=== PATIENT | female | born 1950 | race Caucasian/White ===

== ENCOUNTER → 2019-10-02 13:22 | Outpatient (CLI) | payer MEDICARE, SELFPAY ==
--- NOTE | ~2019-10-02 | DEXA_ITS ---
Bone Density Report Name: Lisbet Davidson Age: 69 Sex: Female Ethnicity: White Date of : 1950 Indication: postmenopausal; screening for osteoporosis; height loss; prior fracture; hysterectomy; Referring Provider: Paul Santizo Study: Bone densitometry was performed. Exam Date: October 02, 2019 Accession number: [id number] Bone Density: Region BMD T-score Z-score Classification AP Spine (L1, L2, L3) 1.077 0.5 2.6 Normal Femoral Neck (Left) 0.709 -1.3 0.5 Osteopenia Total Hip (Left) 0.772 -1.4 0.1 Osteopenia Femoral Neck (Right) 0.706 -1.3 0.5 Osteopenia Total Hip (Right) 0.795 -1.2 0.3 Osteopenia Total Hip Mean 0.784 -1.3 0.2 Osteopenia World Health Organization criteria for BMD impression classify patients as: Normal (T-score at or above -1.0), Osteopenia (T-score between -1.0 and -2.5), or Osteoporosis (T-score at or below -2.5). 10-year Fracture Risk(1): Major Osteoporotic Fracture 15% Hip Fracture 1.8% Reported Risk Factors: [place] (), Neck BMD=0.706, BMI=23.7, previous fracture (1) FRAX(R) Version 3.08. Fracture probability calculated for an untreated patient. Fracture probability may be lower if the patient has received treatment. Clinical Information Provided by Patient: Has had a low trauma fracture Has used the following medications: HRT (i.e. estrogen/hormone therapy) Has the following medical conditions: Hysterectomy Patient maximum height was 66.5 Menopause Age: 45 Drinks caffeinated beverages Onset of menses at age 13 Number of children 1 Impression: The patient has low bone mass, based on the Left Total Hip T-score. The patient has an estimated ten-year risk of hip fracture of 1.8% and an estimated ten-year risk of major fracture of 15%, based on the WHO FRAX algorithm. The patient has risk factors, including: previous fracture. Discussion: BONE DENSITY IS LOW AT ONE OR MORE SKELETAL SITES. This patient's lowest T-score is low at one or more skeletal sites. It meets the World Health Organization's (WHO) criteria for ?low bone mass? (T-score between -1.0 and -2.5). The patient's 10-year risk of fracture as calculated by FRAX is less than the threshold where pharmacological therapy is recommended by the National Osteoporosis Foundation (NOF). However, all treatment decisions require clinical judgment and consideration of individual patient factors, including patient preferences, comorbidities, previous drug use, risk factors not captured in the FRAX model (e.g., frailty, falls, vitamin D deficiency, increased bone turnover, interval significant decline in bone density) and possible under or overestimation of fracture risk by FRAX. The patient should follow a healthful lifestyle (good nutrition with adequate calcium and vitamin D, and appropriate weight-bearing e
== END ==
PROVIDERS: PCP Internal Medicine; Visit Provider Obstetrics & Gynecology
DX: Z78.0 Asymptomatic menopausal state (principal); M85.852 Other specified disorders of bone density and structure, left thigh; M85.851 Other specified disorders of bone density and structure, right thigh
CPT/HCPCS: 77080

== ENCOUNTER 2021-04-07 07:52 | Observation (INO) | payer MEDICARE, SELFPAY ==
[2021-04-07] VITALS (49 sets, daily range): BP systolic 141–213; BP diastolic 51–109; PULSE 70–113; RESP 11–24; TEMP 36–36.9; O2SAT 95–100; BMI 22.8
--- NOTE | ~2021-04-07 | MR_ITS ---
EXAMINATION: MR MRCP wo/w con/w 3D wo ind DATE: 04/09/2021 09:24 INDICATION: Abdominal pain. TECHNIQUE: Magnetic resonance imaging (MRI) of the abdomen was performed without and with 13 mL Multi Lauren intravenous contrast. Sequences included coronal T2-weighted FS FSE, coronal T2-weighted FSE, a xial T1-weighted LAVA, coronal FS FIESTA, axial dual-echo T1-weighted SPGR, coronal lava-FLEX, sagitt al T2-weighted FSE, axial T2-weighted FSE, and axial DWI. Thick-slab T2-weighted FSE images were obta ined for magnetic resonance cholangiopancreatography (MRCP). Maximum intensity projection 3-D reconst ructions of the volumetric data were created by the technologist. Postcontrast sequences included cor onal LAVA-flex and time course of axial T1-weighted LAVA. COMPARISON: CT abdomen and pelvis 04/07/2021 FINDINGS: ABDOMEN MRI: There are cysts in the liver measuring up to 7 mm. There is mild intrahepatic biliary du ct dilatation. The pancreatic duct is dilated to 7 mm. There is a 10 mm cystic lesion in the body of the pancreas with communication with the main pancreatic duct. There are dilated pancreatic duct side chains in the tail of the pancreas. There is incomplete pancreas divisum. There is a 9 mm cyst in the spleen. The adrenal glands and left kidney are normal. There are cysts in right kidney measuring up to 7 mm. There are no dilated loops of bowel. There are no pathologically enlarged lymph nodes. There is trace ascites. ABDOMEN MRCP: The common duct is dilated to 12 mm. No choledocholithiasis. IMPRESSION: 1. Biliary and pancreatic duct dilatation. No obstructing mass identified on this MRI or yesterday's endoscopy. 2. 10 mm cystic lesion of the pancreas with main duct communication, probably benign. Abdomen MRI wit hout and with contrast is recommended in one year. Reviewed, dictated and finalized at location A. IMPRESSION: 1. Biliary and pancreatic duct dilatation. No obstructing mass identified on th is MRI or yesterday's endoscopy. 2. 10 mm cystic lesion of the pancreas with main duct communication, probably b enign. Abdomen MRI without and with contrast is recommended in one year.
--- NOTE | ~2021-04-07 | CT_ITS ---
EXAMINATION: CT abdomen pelvis w con DATE: 04/07/2021 09:35 INDICATION: Epigastric pain, nausea and vomiting TECHNIQUE: Computed tomography (CT) of the abdomen and pelvis was performed without and with 100 cc O mnipaque 350 intravenous contrast. The dose-length product was 1093.23 mGy-cm. Automated exposure con trol and iterative reconstruction technique were employed. COMPARISON: None. FINDINGS: There is dependent atelectasis in the lung bases. No renal stones or hydronephrosis. Heart size is normal. No significant pleural or pericardial effusion. Small hiatal hernia. There is small low-density lesions in the spleen and liver, most likely benign cysts. There are calci fied granulomas of the liver and spleen. There is a dilated common bile duct measuring 1.2 cm. Gallbl adder is distended. No definite gallstones are identified. Pancreatic duct is dilated. Nonobstructive bowel gas pattern. Colonic diverticulosis without evidence for diverticulitis. No free air or free fluid. No significant vascular abnormality. No lymphadenopathy. There is fusion at L4-5. There is grade 1 degenerative spondylolisthesis at L3-4. IMPRESSION: 1. Dilated common bile duct and pancreatic duct. No definite obstructing stone or mass. Consider logan elation with MRCP examination. Reviewed, dictated and finalized at location A. IMPRESSION: 1. Dilated common bile duct and pancreatic duct. No definite obstructing stone or mass. Consider correlation with MRCP examination.
--- NOTE | ~2021-04-07 | XR_ITS ---
EXAMINATION: XR chest 2V EXAM DATE: 04/07/2021 08:13 INDICATION: Epigastric pain X 1 day vomiting and diarrhea. TECHNIQUE: Frontal and lateral projections of the chest obtained and reviewed. Comparison is made to prior examination from 06/16/2019. FINDINGS: The lungs are hyperinflated which can be seen with chronic obstructive pulmonary disease ( a clinical diagnosis of functional impairment), but is not diagnostic of it. No confluent consolidati on, pneumothorax or pleural effusion suspected. Cardiomediastinal silhouette is normal. 2 right rib f ractures identified, one appears chronic with nonunion the other could be subacute. Moderate thoracic spondylosis. IMPRESSION: 1. Hyperinflation. Reviewed, dictated and finalized at location B. IMPRESSION: 1. Hyperinflation.
--- NOTE | 2021-04-07 07:57 | ECG_ITS ---
Measurements Intervals [place] Rate: 74 P: 69 NE: 164 QRS: 59 QRSD: 105 T: 62 QT: 416 QTc: 462 Interpretive Statements SINUS RHYTHM WITH SINUS ARRHYTHMIA ATRIAL PREMATURE COMPLEX POSSIBLE LEFT ATRIAL ENLARGEMENT BASELINE ARTIFACT- I, II, III, AVR, AVL, AVF, V1, V4-V6 BORDERLINE ECG Electronically Signed On 04-07-2021 8:53:58 CDT by Raul Wei D.O.
[2021-04-07 08:10] LABS: Basophils Percent Auto 0.2 % (0.2-1.2); Eosinophils Percent Auto 0.1 % (0-4.4); Hematocrit 43.8 % (37.0-47.0); Hemoglobin 15.1 g/dL (12.0-15.0); Immature Granulocyte Absolute 0.09 K/mm3 (0.00-0.031); Immature Granulocyte Percent A 0.5 % (0-0.5); Lymphocytes Absolute Auto 1.47 K/mm3 (0.9-3.2); Lymphocytes Percent Auto 8.7 % (18.3-44.2); Mean Corpuscular HGB Conc 34.5 g/dl (32-36); Mean Corpuscular Hemoglobin 31.2 pg (26-34); Mean Corpuscular Volume 90.5 fl (80-100); Mean Platelet Volume 9.4 fl (7.4-10.4); Monocytes Absolute Auto 1.4 K/mm3 (0.1-0.6); Monocytes Percent Auto 8.4 % (2.6-8.5); Neutrophils Absolute Auto 13.9 K/mm3 (1.3-6.7); Neutrophils Percent Auto 82.1 % (45.5-73.1); Platelet Count Result 313 k/mm3 (150-375); Red Blood Count 4.84 M/mm3 (4.2-5.4); Red Cell Distribution Width 13.1 % (11.5-14.5); White Blood Count 16.9 K/mm3 (4.5-10.0)
[2021-04-07 08:19] LABS: Anion Gap 14 mmol/L (8-16); Blood Urea Nitrogen 14 mg/dL (7-17); Carbon Dioxide 27 mmol/L (22-30); Chloride 91 mmol/L (98-107); Estimated CRCL calculation 68 ml/min; Estimated Glomerular Filt Rate > 60; Glucose 153 mg/dL (65-110); Potassium 3.3 mmol/L (3.4-5.0); Sodium 132 mmol/L (137-145)
[2021-04-07] MEDS: ASPIRIN 81 MG CHEWABLE TABLET 324 MG PO ×2 (08:21→08:48)
[2021-04-07 08:25] LABS: INR 0.9; Prothrombin Time 11.8 Seconds (11.1-14.7)
[2021-04-07 08:26] LABS: Partial Thromboplastin Time 23.1 SECONDS (22.3-36.8)
[2021-04-07 08:31] LABS: Troponin I < 0.012 ng/mL (0.000-0.034)
--- NOTE | 2021-04-07 08:53 | ED.ABDPAIN ---
HPI - Abdominal Pain General Chief Complaint: Abdominal Pain Stated Complaint: ABD PAIN Time Seen by Provider: 04/07/21 08:46 History of Present Illness HPI narrative: Patient presents with upper abdominal pain associated nausea vomiting and diarrhea. Patient for symptoms started last night. Her pain is constant, achy, severe, no radiation, no clear aggravating or alleviating factors. Reports prior history doctor but no other abdominal surgeries. She denies fever. Related Data Home Medications Medication Instructions Recorded Confirmed estradiol 0.5 mg PO DAILY 06/16/19 04/07/21 fentanyl 25 mcg TOPICAL USEASDIRECTD 06/16/19 04/07/21 oxycodone-acetaminophen 1 tablet PO TID 06/16/19 04/07/21 polyethylene glycol 3350 [Miralax] 17 g PO DAILY 06/17/19 04/07/21 famciclovir 250 mg PO Q12H 04/07/21 04/07/21 meloxicam 15 mg PO DAILY 04/07/21 04/07/21 Allergies Allergy/AdvReac Type Severity Reaction Status Date / Time adhesive tape Allergy Mild Rash Verified 04/07/21 15:49 Penicillins Allergy Unknown Unknown Verified 04/07/21 08:04 Review of Systems Review of Systems: CONSTITUTIONAL: Denies fever, chills, or sweats. EYES: Denies visual changes, redness, or discharge. ENT: Denies rhinorrhea, congestion, sore throat, or otalgia. CARDIOVASCULAR: Denies chest pain, palpitations, or edema. RESPIRATORY: Denies cough or dyspnea. GASTROINTESTINAL: Reports abdominal pain nausea vomiting diarrhea GENITOURINARY: Denies dysuria or hematuria. SKIN: Denies rash or itching. MUSCULOSKELETAL: Denies back pain, joint pain, or myalgia. NEUROLOGIC: Denies headache, numbness, dizziness, or weakness. PSYCHIATRIC: Denies anxiety or depression. All systems reviewed & are unremarkable except as noted in HPI and below PMFSH Past Medical History Medical History (Updated 04/07/21 @ 14:12 by Subha Delcid PA-C) Anxiety Chronic obstructive pulmonary disease Chronic pain syndrome Chronic low back pain on long-term opioid therapy. Degenerative disc disease Depression Hypertension Reactive airway disease Treadmill stress test negative for angina pectoris (05/2007) Vitamin D deficiency Surgical History Surgical History (Updated 04/07/21 @ 14:08 by Subha Delcid PA-C) History of colonoscopy Done for evaluation of bright red blood per rectum per Dr. Yan in 2007. Internal hemorrhoids were noted, felt to be the source of the bleeding. History of hysterectomy History of lumbar discectomy Family History Family History Father Malignant neoplasm of prostate Family history of heart disease in male family member before age 55 Mother Carcinoma of colon Other Family history of cardiovascular disease Social History Social History (Updated 04/07/21 @ 14:11 by Subha Delcid PA-C) Social History: Resides in [place] with her . No alcohol, tobacco, or illicit substance abuse. She designates her , Christopher as her surrogate decision maker. Code status: Full code. Smoking status: Never smoker Spiritual care concerns: No Exam Narrative: GENERAL: Well-appearing, well-nourished, moderate distress due to pain HEAD: Normocephalic, atraumatic. EYES: PERRLA and EOMI. ENT: Nares clear, no rhinorrhea or epistaxis. Mucous membranes moist. NECK: Supple. No masses. No JVD CHEST: Clear to auscultation. No respiratory distress. No wheezes rales or rhonchi HEART: Regular rate and rhythm. No murmur heard. Normal peripheral pulses. ABDOMEN: Soft diffuse tenderness with guarding EXTREMITIES: Normal range of motion. No edema. SKIN: Warm, dry, no rash. NEURO: No focal deficits. Alert and oriented x3. PSYCH: Normal mood and affect. Course Vital Signs Vital signs: Vital Signs Temperature 36.5 C 04/07/21 07:57 Pulse Rate 82 04/07/21 07:57 Respiratory Rate 24 H 04/07/21 07:57 Pulse Oximetry 100 04/07/21 07:57 Temperature 36.9 C
[2021-04-07] MEDS: ONDANSETRON INJ 4 MG/2 ML VIAL IV PUSH ×3 (08:59→20:34)
[2021-04-07] MEDS: SODIUM CHLORIDE 0.9% IV 1,000 ML 999 ML IV CONT (09:01)
[2021-04-07] MEDS: MORPHINE SULFATE (*CRX) 4 MG/ML INJ IV PUSH ×2 (09:01→11:20)
[2021-04-07 09:19] LABS: Alanine Aminotransferase 20 U/L (4-35); Albumin Level 5.1 g/dL (3.5-5.1); Alkaline Phosphatase 66 U/L (38-126); Aspartate Amino Transferase 32 U/L (14-36); Bilirubin,Total 0.6 mg/dL (0.2-1.3); Lipase 43 U/L (23-300)
--- NOTE | 2021-04-07 11:20 | PC.NURSE ---
1120-MORPHINE SULFATE 4 MG IV PUSH GIVEN VIA #18 ANGIOCATH RIGHT ANTECUBITAL. PATIENT RATES EPIGASTRIC PAIN A 10/10. C/O NAUSEA.
[2021-04-07] MEDS: metroNIDAZOLE 500 MG/ISO 100ML 500 MG/100 ML BAG 100 MG IVPB ×2 (12:05→17:19)
--- NOTE | 2021-04-07 13:00 | PM.IMHP ---
H&P: HPI History of Present Illness Date/Time: 04/07/21 13:00 Chief Complaint: Abdominal pain. Narrative: This is a 71-year-old female with COPD, hypertension, and chronic back plain long-term opiate therapy who presented to the emergency department earlier today for evaluation abdominal pain. She ate pizza for dinner last evening and not long thereafter she developed epigastric abdominal discomfort associated with nausea, vomiting, and diarrhea. She had some chills at the time as well. Unfortunately she continued to have pain today which she describes as a constant, severe, aching pain diffusely throughout her abdomen. The pain does not radiate and she has not noticed any significant aggravating/alleviating factors. She is feeling better at the time my evaluation and has not had diarrhea for several hours. She denies significant GERD symptoms. No jaundice or pruritus. She has not noticed blood or mucus in the stool. She is on meloxicam daily and will occasionally take ketorolac for migraine headaches but that is rare. She denies significant caffeine and alcohol intake. No sick contacts. No history of pancreatitis or peptic ulcers. [facility] Past Medical History Medical History (Updated 04/07/21 @ 14:12 by Subha Delcid PA-C) Anxiety Chronic obstructive pulmonary disease Chronic pain syndrome Chronic low back pain on long-term opioid therapy. Degenerative disc disease Depression Hypertension Reactive airway disease Treadmill stress test negative for angina pectoris (05/2007) Vitamin D deficiency Surgical History Surgical History (Updated 04/07/21 @ 14:08 by Subha Delcid PA-C) History of colonoscopy Done for evaluation of bright red blood per rectum per Dr. Yan in 2007. Internal hemorrhoids were noted, felt to be the source of the bleeding. History of hysterectomy History of lumbar discectomy Family History Family History Father Malignant neoplasm of prostate Family history of heart disease in male family member before age 55 Mother Carcinoma of colon Other Family history of cardiovascular disease Social History Social History (Updated 04/08/21 @ 01:49 by Subha Delcid PA-C) Social History: Resides in [place] with her . No alcohol, tobacco, or illicit substance abuse. She designates her , Christopher as her surrogate decision maker. Code status: Full code. Meds Home Medications and Allergies Home Medications Medication Instructions Recorded Confirmed Type estradiol 0.5 mg PO DAILY 06/16/19 04/07/21 History fentanyl 25 mcg TOPICAL USEASDIRECTD 06/16/19 04/07/21 History oxycodone-acetaminophen 1 tablet PO BID PRN 06/16/19 04/07/21 History polyethylene glycol 3350 [Miralax] 17 g PO DAILY 06/17/19 04/07/21 History hydrocortisone 2.5 % topical cream 1 applic RECTAL DAILY PRN #30 gm 05/07/20 04/07/21 Rx with perineal applicator cyclobenzaprine 10 mg tablet 10 mg PO TID PRN #60 tablet 01/01/21 04/07/21 Rx zolpidem 12.5 mg tablet,extended 12.5 mg PO .HS #30 tablet 02/04/21 04/07/21 Rx release,multiphase valsartan 160 See Rx Instructions .ROUTE 03/02/21 04/07/21 Rx mg-hydrochlorothiazide 25 mg tablet .COMPLEX #90 tablet famciclovir 250 mg PO Q12H 04/07/21 04/07/21 History ketorolac 10 mg PO Q6H PRN 04/07/21 04/07/21 History meloxicam 15 mg PO DAILY 04/07/21 04/07/21 History Allergies Allergy/AdvReac Type Severity Reaction Status Date / Time adhesive tape Allergy Mild Rash Verified 04/07/21 15:49 Penicillins Allergy Unknown Unknown Verified 04/07/21 08:04 Vital Signs Vital Signs - 24 hr 04/07/21 07:57 04/07/21 09:06 04/07/21 10:03 Temperature 97.7 F Pulse Rate 82 90 88 Respiratory Rate 24 H 24 H 20 Blood Pressure 156/99 H 141/98 H Pulse Oximetry 100 100 100 Exam Narrative: General: Well-developed female supine in bed in no distress. Weight: 64.3 kg. BMI: 22.9. HEENT: PERRL, EOMI. Sclerae
--- NOTE | 2021-04-07 13:34 | WPDGICN ---
Assessment and Plan Assessment and plan (1) Epigastric abdominal pain: Code(s): R10.13 - Epigastric pain Status: Acute Assessment and Plan: Patient has epigastric pain described as a constant soreness that is rather intense. It is not burning or crampy. Based on its location we will plan an EGD in the morning to assess more thoroughly. Currently patient is receiving pain medications given through the ER with adequate relief of symptoms. (2) Abnormal CT scan: Code(s): R93.89 - Abnormal findings on diagnostic imaging of other specified body structures Status: Acute Assessment and Plan: CT scan performed in the ER reveals dilatation of the biliary tree and pancreas. Apparently this is chronic. She does have normal LFTs which suggests this may not be the etiology for her pain. MRCP is been suggested will be performed to evaluate this more thoroughly. Further recommendations will be given after MRCP. LFTs will be followed as well. (3) Leukocytosis: Code(s): D72.829 - Elevated white blood cell count, unspecified Status: Acute Assessment and Plan: Elevated white count in the ER suggest inflammation. Infection cannot be excluded. Patient was started on empiric antibiotics in the ER. No obvious infection at this time is evident however. We will continue to observe her white count GI Consult Note Consult date/time: 04/07/21 13:34 HPI: Lisbet Davidson is a 71 year old female I am asked to see because of abdominal pain. Patient reports she was in her usual state of health till last evening. She ate a pizza for dinner. At 9:00 a.m. began to have rather significant severe vomiting. She eventually emptied her stomach and continued to have dry he is. Eventually describes cold sweats. She denies a fever. During the middle of the night developed rather intense epigastric pain across the upper part of her abdomen lower rib cage. She describes this as rather a constant pain. She denies it being burning. She denies any cramps. It was rather constant. It persisted until she was seen in the emergency room today and treated with morphine and Zofran. Currently she has rather comfortable lying at rest. She denies prior episodes of abdominal pain such as this. She does have low back pain for which she sees pain management. In the emergency room a CT scan of the abdomen was performed which reveals mild dilatation to the extrahepatic bile ducts as well as mild dilatation of the pancreatic. Her LFTs are normal. White count mildly elevated at 16. She states previous MRIs of her back have revealed that her biliary tree was dilated on previous exams elsewhere. Family history is noncontributory. There is no evidence for gallstones. Review of Systems Review of Systems: All systems reviewed & are unremarkable except as noted in HPI and below PMFSH Past Medical History Medical History (Updated 04/07/21 @ 13:39 by Alexandre Yan MD) Anxiety Chronic low back pain Chronic pain syndrome Chronic low back pain on long-term opioid therapy. COPD (chronic obstructive pulmonary disease) DDD (degenerative disc disease) Depression FHx: colon cancer HTN (hypertension) Hypertension Reactive airway disease Treadmill stress test negative for angina pectoris May 2007. Vitamin D deficiency Surgical History Surgical History H/O Spinal surgery H/O: hysterectomy History of colonoscopy Done for evaluation of bright red blood per rectum per Dr. Yan in 2007. Internal hemorrhoids were noted, felt to be the source of the bleeding. Status post hysterectomy Status post lumbar discectomy Family History Family History Father Malignant neoplasm of prostate Family history of heart disease in male family member before age 55 Mother Carcinoma of colon Other Family history of cardiovascul
--- NOTE | 2021-04-07 15:17 | PC.NURSE ---
1517-REPORT CALLED TO [facility] ON SECOND FLOOR.
--- NOTE | 2021-04-07 15:35 | ADMGEN ---
This patient, Lisbet Davidson, was admitted to 2 Medical Room 259-01. Patient/family oriented to hospital policies and general routines including ID bracelet, bed and alarms, visiting hours, pain management, procedures, bathroom and other care routines, personal items, smoking policy, room service/diet, and visiting hours. Information on how to activate the Rapid Response Team has been discussed. Patient/Family are encouraged to report perceived risks to care and to ask questions if they do not understand what they are told or what they should do.
[2021-04-07] MEDS: SODIUM CHLORIDE 0.9% IV 1,000 ML 75 ML IV CONT (16:11)
[2021-04-08] VITALS (11 sets, daily range): BP systolic 138–179; BP diastolic 59–103; PULSE 57–105; RESP 14–30; TEMP 36.4–37; O2SAT 96–100
[2021-04-08] MEDS: oxyCODONE HCL (*CRX) 5 MG TAB IR PO ×3 (00:06→19:58)
[2021-04-08] MEDS: oxyCODONE/ACETAMINOPHEN (*CRX) 5-325 MG TABLET 1 TABLET PO ×3 (00:07→20:04)
[2021-04-08] MEDS: metroNIDAZOLE 500 MG/ISO 100ML 500 MG/100 ML BAG 100 MG IVPB ×5 (00:08→23:46)
[2021-04-08] MEDS: fentaNYL (*CRX) 25 MCG PATCH TRANSDERM (00:13)
[2021-04-08] MEDS: ZOLPIDEM TARTRATE (*CRX) 5 MG TABLET 10 MG PO (00:14)
[2021-04-08] MEDS: SODIUM CHLORIDE 0.9% IV 1,000 ML 75 ML IV CONT (04:07)
[2021-04-08] MEDS: ONDANSETRON INJ 4 MG/2 ML VIAL IV PUSH ×4 (04:31→23:45)
[2021-04-08 05:52] LABS: Basophils Percent Auto 0.2 % (0.2-1.2); Eosinophils Percent Auto 0.1 % (0-4.4); Hematocrit 38.6 % (37.0-47.0); Hemoglobin 13.5 g/dL (12.0-15.0); Immature Granulocyte Absolute 0.03 K/mm3 (0.00-0.031); Immature Granulocyte Percent A 0.3 % (0-0.5); Lymphocytes Absolute Auto 1.45 K/mm3 (0.9-3.2); Lymphocytes Percent Auto 13.6 % (18.3-44.2); Mean Corpuscular Hemoglobin 31.3 pg (26-34); Mean Corpuscular Volume 89.6 fl (80-100); Mean Platelet Volume 9.3 fl (7.4-10.4); Monocytes Percent Auto 8.9 % (2.6-8.5); Neutrophils Absolute Auto 8.2 K/mm3 (1.3-6.7); Neutrophils Percent Auto 76.9 % (45.5-73.1); Platelet Count Result 261 k/mm3 (150-375); Red Blood Count 4.31 M/mm3 (4.2-5.4); Red Cell Distribution Width 13.1 % (11.5-14.5); White Blood Count 10.7 K/mm3 (4.5-10.0)
[2021-04-08 06:06] LABS: Alanine Aminotransferase 14 U/L (4-35); Alkaline Phosphatase 46 U/L (38-126); Anion Gap 7 mmol/L (8-16); Aspartate Amino Transferase 25 U/L (14-36); Bilirubin,Total 0.4 mg/dL (0.2-1.3); Blood Urea Nitrogen 11 mg/dL (7-17); Calcium 8.8 mg/dL (8.4-10.2); Carbon Dioxide 25 mmol/L (22-30); Chloride 101 mmol/L (98-107); Estimated CRCL calculation 81 ml/min; Estimated Glomerular Filt Rate > 60; Glucose 108 mg/dL (65-110); Lipase 37 U/L (23-300); Magnesium 1.7 mg/dL (1.6-2.3); Potassium 2.8 mmol/L (3.4-5.0); Sodium 133 mmol/L (137-145)
--- NOTE | 2021-04-08 06:52 | P.PNIM_ITS ---
Progress Note: A&P Assessment and Plan (1) Epigastric abdominal pain: Code(s): R10.13 - Epigastric pain Status: Acute Assessment and Plan: * CT findings indicate dilated bile duct and pancreatic duct, no obstruction or stones noted * MRCP scheduled today * GI consult thank you for your recommendations * EGD scheduled found gastritis * IV Levaquin and Flagyl for possible bacterial infection * IV fluids for hydration * regular diet (2) Abnormal computed tomography of abdomen and pelvis: Code(s): R93.5 - Abnormal findings on diagnostic imaging of other abdominal regions, including retroperitoneum Status: Acute Assessment and Plan: * CT shows dilated common bile and pancreatic ducts without definitive obstruction. * MRCP ordered for further evaluation. * See above (3) Electrolyte abnormality: Code(s): E87.8 - Other disorders of electrolyte and fluid balance, not elsewhere classified Status: Acute Assessment and Plan: * Mild hyponatremia (sodium 133), hypokalemia (potassium 2.8), and hypochloremia (chloride 101). 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 (5) Chronic obstructive pulmonary disease: Code(s): J44.9 - Chronic obstructive pulmonary disease, unspecified Status: Acute Assessment and Plan: * No acute issues at this time * Chest xray shows hyperinflation (6) Hypertension: Code(s): I10 - Essential (primary) hypertension Status: Acute Assessment and Plan: * Current blood pressure 158/90 * Continue Valsartan 160mg PO Daily, Hydrochlorothiazide 25mg PO Daily * Could be elevated due to pain * Trend blood pressure * Adjust medications as needed (7) Hypokalemia: Code(s): E87.6 - Hypokalemia Status: Acute Assessment and Plan: * K is 2.8 today, repeat was 3.2 will replace with oral * 40mcg IV replacement * trend labs * Replace as needed (8) Hypomagnesemia: Code(s): E83.42 - Hypomagnesemia Status: Acute Assessment and Plan: * Mag 1.7 * Replace with 1gm IV * Trend labs * Labs in the am (9) Primary insomnia: Code(s): F51.01 - Primary insomnia Status: Acute Assessment and Plan: * Continue home ambein * Reduce dose due to renal function (10) Leukocytosis: Code(s): D72.829 - Elevated white blood cell count, unspecified Status: Acute Assessment and Plan: * WBC 16.9 on admission * Trending down to 10.7 * Started on empiric IV Levaquin and Flagyl * Trend labs * Unknown infectious source at this time * EGD scheduled Time Spent With Patient Time with patient: 25 - 35 minutes Subjective Date/time seen: 04/08/21 13:15 Interval history: Patient is a 71 year old female here for nausea and vomiting. Patient stated that she still little losses however she has no pain. She has had no bowel movement today but she has had 3 yesterday which were not diarrhea. She stated that she does have a decent appetite. Patient denies chest pain, shortn
--- NOTE | 2021-04-08 06:52 | PM.IMPN ---
Progress Note: A&P Assessment and Plan (1) Epigastric abdominal pain: Code(s): R10.13 - Epigastric pain Status: Acute Assessment and Plan: CT findings indicate dilated bile duct and pancreatic duct, no obstruction or stones noted MRCP scheduled today GI consult thank you for your recommendations EGD scheduled found gastritis IV Levaquin and Flagyl for possible bacterial infection IV fluids for hydration regular diet (2) Abnormal computed tomography of abdomen and pelvis: Code(s): R93.5 - Abnormal findings on diagnostic imaging of other abdominal regions, including retroperitoneum Status: Acute Assessment and Plan: CT shows dilated common bile and pancreatic ducts without definitive obstruction. MRCP ordered for further evaluation. See above (3) Electrolyte abnormality: Code(s): E87.8 - Other disorders of electrolyte and fluid balance, not elsewhere classified Status: Acute Assessment and Plan: Mild hyponatremia (sodium 133), hypokalemia (potassium 2.8), and hypochloremia (chloride 101). Possible dehydration Hold hydrochlorothiazide on hold for now Replace as needed (4) Chronic pain syndrome: Code(s): G89.4 - Chronic pain syndrome Status: Chronic Assessment and Plan: fentanyl patch Roxicodone 5mg PO BID PRN, Percocet 5/325 1 tab PO BID PRN Continue home meloxicam On mcc treatment at home (5) Chronic obstructive pulmonary disease: Code(s): J44.9 - Chronic obstructive pulmonary disease, unspecified Status: Acute Assessment and Plan: No acute issues at this time Chest xray shows hyperinflation (6) Hypertension: Code(s): I10 - Essential (primary) hypertension Status: Acute Assessment and Plan: Current blood pressure 158/90 Continue Valsartan 160mg PO Daily, Hydrochlorothiazide 25mg PO Daily Could be elevated due to pain Trend blood pressure Adjust medications as needed (7) Hypokalemia: Code(s): E87.6 - Hypokalemia Status: Acute Assessment and Plan: K is 2.8 today, repeat was 3.2 will replace with oral 40mcg IV replacement trend labs Replace as needed (8) Hypomagnesemia: Code(s): E83.42 - Hypomagnesemia Status: Acute Assessment and Plan: Mag 1.7 Replace with 1gm IV Trend labs Labs in the am (9) Primary insomnia: Code(s): F51.01 - Primary insomnia Status: Acute Assessment and Plan: Continue home ambein Reduce dose due to renal function (10) Leukocytosis: Code(s): D72.829 - Elevated white blood cell count, unspecified Status: Acute Assessment and Plan: WBC 16.9 on admission Trending down to 10.7 Started on empiric IV Levaquin and Flagyl Trend labs Unknown infectious source at this time EGD scheduled Time Spent With Patient Time with patient: 25 - 35 minutes Subjective Date/time seen: 04/08/21 13:15 Interval history: Patient is a 71 year old female here for nausea and vomiting. Patient stated that she still little losses however she has no pain. She has had no bowel movement today but she has had 3 yesterday which were not diarrhea. She stated that she does have a decent appetite. Patient denies chest pain, shortness of breath, weakness, fatigue, vomiting, lightheadedness or dizziness. EGDs showed gastritis. Patient will go for an MRCP tomorrow. Review of Systems Review of Systems: All systems reviewed & are unremarkable except as noted in HPI and below Exam Const: General: cooperative, healthy appearing, no acute distress, well developed, alert and awake Nutritional Appearance: well nourished Orientation/consciousness: patient oriented x3 Limitations: no limitations HENMT: Head: normal to inspection Ears: hearing grossly normal bilaterally General nose exam: Normal external nose p
[2021-04-08] MEDS: MAGNESIUM SULF 1 GM/D5W 100 ML 1 GM/100 ML BAG IVPB (07:57)
--- NOTE | 2021-04-08 09:27 | WPDANESEPPF ---
Anes - Initial Pre Proc Eval Procedure: Operation Date: 04/08/21 10:00 Proposed Procedures p Esophagogastroduodenoscopy - Alexandre Yan MD Date/Time: 04/08/21 09:27 Surgeon: Patricio Weston MD Pre Op Diagnosis: Abdominal pain Patient Data Age: 71 Gender: F Height: 1.68 m Weight: 64.3 kg Last Vital Signs Temp 36.9 C 04/08/21 09:13 Pulse 89 04/08/21 09:13 Resp 14 04/08/21 09:13 BP 174/86 H 04/08/21 09:13 Pulse Ox 100 04/08/21 09:13 Allergies Allergy/AdvReac Type Severity Reaction Status Date / Time adhesive tape Allergy Mild Rash Verified 04/07/21 15:49 Penicillins Allergy Unknown Unknown Verified 04/07/21 08:04 Home Medications Medication Instructions Recorded Confirmed Type estradiol 0.5 mg PO DAILY 06/16/19 04/07/21 History fentanyl 25 mcg TOPICAL USEASDIRECTD 06/16/19 04/07/21 History oxycodone-acetaminophen 1 tablet PO BID PRN 06/16/19 04/07/21 History polyethylene glycol 3350 [Miralax] 17 g PO DAILY 06/17/19 04/07/21 History hydrocortisone 2.5 % topical cream 1 applic RECTAL DAILY PRN #30 gm 05/07/20 04/07/21 Rx with perineal applicator cyclobenzaprine 10 mg tablet 10 mg PO TID PRN #60 tablet 01/01/21 04/07/21 Rx zolpidem 12.5 mg tablet,extended 12.5 mg PO .HS #30 tablet 02/04/21 04/07/21 Rx release,multiphase valsartan 160 See Rx Instructions .ROUTE 03/02/21 04/07/21 Rx mg-hydrochlorothiazide 25 mg tablet .COMPLEX #90 tablet famciclovir 250 mg PO Q12H 04/07/21 04/07/21 History ketorolac 10 mg PO Q6H PRN 04/07/21 04/07/21 History meloxicam 15 mg PO DAILY 04/07/21 04/07/21 History Laboratory Tests 04/08/21 04/08/21 05:39 05:39 WBC 10.7 K/mm3 H K/mm3 (4.5-10.0) RBC 4.31 M/mm3 M/mm3 (4.2-5.4) Hgb 13.5 g/dL g/dL (12.0-15.0) Hct 38.6 % % (37.0-47.0) MCV 89.6 fl fl (80-100) MCH 31.3 pg pg (26-34) MCHC 35.0 g/dl g/dl (32-36) RDW 13.1 % % (11.5-14.5) Plt Count 261 k/mm3 k/mm3 (150-375) MPV 9.3 fl fl (7.4-10.4) Immature Gran % (Auto) 0.3 % % (0-0.5) Neut % (Auto) 76.9 % H % (45.5-73.1) Lymph % (Auto) 13.6 % L % (18.3-44.2) [place] % (Auto) 8.9 % H % (2.6-8.5) Eos % (Auto) 0.1 % % (0-4.4) Baso % (Auto) 0.2 % % (0.2-1.2) Lymph # (Auto) 1.45 K/mm3 K/mm3 (0.9-3.2) [place] # (Auto) 1.0 K/mm3 H K/mm3 (0.1-0.6) Eos # (Auto) 0.0 K/mm3 K/mm3 (0-0.3) Baso # (Auto) 0.0 K/mm3 K/mm3 (0.0-0.1) Abs Immat Gran (auto) 0.03 K/mm3 K/mm3 (0.00-0.031) Absolute Neuts (auto) 8.2 K/mm3 H K/mm3 (1.3-6.7) Absolute Nucleated RBC 0.0 K/mm3 K/mm3 (0.0-0.012) Nucleated RBC % 0.0 % % (0.0-0.2) Sodium 133 mmol/L L mmol/L (137-145) Potassium 2.8 mmol/L L* mmol/L (3.4-5.0) Chloride 101 mmol/L mmol/L (98-107) Carbon Dioxide 25 mmol/L mmol/L (22-30) Anion Gap 7 mmol/L L mmol/L (8-16) BUN 11 mg/dL mg/dL (7-17) Creatinine 0.50 mg/dL L mg/dL (0.7-1.0) Estim Creat Clear Calc 81 ml/min ml/min Estimated GFR > 60 (59 - ) Glucose 108 mg/dL mg/dL (65-110) Calcium 8.8 mg/dL mg/dL (8.4-10.2) Magnesium 1.7 mg/dL mg/dL (1.6-2.3) Total Bilirubin 0.4 mg/dL mg/dL (0.2-1.3) AST 25 U/L U/L (14-36) ALT 14 U/L U/L (4-35) Alkaline Phosphatase 46 U/L U/L (38-126) Total Protein 6.0 g/dL L g/dL (6.3-8.2) Albumin 4.0 g/dL g/dL (3.5-5.1) Lipase 37 U/L U/L (23-300) Patient hx anesthesia problems: none Family hx anesthesia problems: none [facility] Past Medical History Medical History (Updated 04/08/21 @ 07:05 by Jose Urban [facility]) Anxiety Chronic obstructive pulmonary disease Chronic pain syndrome Chronic low back pain on long-term opioid therapy. Degenerative disc disease Depression Hypertension Reactive airway disease Treadmill stress test ne
[2021-04-08] MEDS: BENZOCAINE (*SP) 60 ML SPRAY CAN (HURRICAINE) 1 SPRAY MUCOUS MEM (09:48)
[2021-04-08] MEDS: VALSARTAN 160 MG TABLET PO (10:58)
[2021-04-08] MEDS: hydroCHLOROthiazide 25 MG TABLET PO (10:59)
[2021-04-08] MEDS: estradioL 0.5 MG TABLET PO (10:59)
[2021-04-08] MEDS: MELOXICAM 7.5 MG TABLET 15 MG PO (11:00)
[2021-04-08] MEDS: polyethylene glycoL 3350 17 GM POWD.PACK PO (11:04)
[2021-04-08 13:09] LABS: Potassium 3.3 mmol/L (3.4-5.0)
[2021-04-08] MEDS: POTASSIUM CHLORIDE 20 MEQ TABLET 40 MEQ PO (17:00)
[2021-04-08] MEDS: ZOLPIDEM TARTRATE (*CRX) 5 MG TABLET PO (20:54)
[2021-04-09] MEDS: CYCLOBENZAPRINE HCL 10 MG TABLET PO (03:42)
[2021-04-09 03:49] VITALS: BP 177/100; PULSE 82; RESP 17; TEMP 36.6; O2SAT 98
[2021-04-09] MEDS: ONDANSETRON INJ 4 MG/2 ML VIAL IV PUSH ×2 (04:04→09:49)
[2021-04-09 05:00] VITALS: BP 138/82
[2021-04-09 05:57] LABS: Basophils Absolute Auto 0.1 K/mm3 (0.0-0.1); Basophils Percent Auto 0.5 % (0.2-1.2); Eosinophils Absolute Auto 0.1 K/mm3 (0-0.3); Hematocrit 38.5 % (37.0-47.0); Hemoglobin 13.4 g/dL (12.0-15.0); Immature Granulocyte Absolute 0.06 K/mm3 (0.00-0.031); Immature Granulocyte Percent A 0.6 % (0-0.5); Lymphocytes Absolute Auto 2.04 K/mm3 (0.9-3.2); Lymphocytes Percent Auto 20.4 % (18.3-44.2); Mean Corpuscular HGB Conc 34.8 g/dl (32-36); Mean Corpuscular Volume 89.1 fl (80-100); Mean Platelet Volume 9.6 fl (7.4-10.4); Monocytes Percent Auto 9.5 % (2.6-8.5); Neutrophils Absolute Auto 6.8 K/mm3 (1.3-6.7); Platelet Count Result 245 k/mm3 (150-375); Red Blood Count 4.32 M/mm3 (4.2-5.4); Red Cell Distribution Width 13.1 % (11.5-14.5)
[2021-04-09] MEDS: metroNIDAZOLE 500 MG/ISO 100ML 500 MG/100 ML BAG 100 MG IVPB ×2 (06:06→11:59)
[2021-04-09 06:07] LABS: Alanine Aminotransferase 13 U/L (4-35); Albumin Level 3.8 g/dL (3.5-5.1); Alkaline Phosphatase 46 U/L (38-126); Anion Gap 5 mmol/L (8-16); Aspartate Amino Transferase 25 U/L (14-36); Bilirubin,Total 0.5 mg/dL (0.2-1.3); Blood Urea Nitrogen 11 mg/dL (7-17); Calcium 8.8 mg/dL (8.4-10.2); Carbon Dioxide 27 mmol/L (22-30); Chloride 99 mmol/L (98-107); Estimated CRCL calculation 68 ml/min; Estimated Glomerular Filt Rate > 60; Glucose 105 mg/dL (65-110); Lipase 104 U/L (23-300); Magnesium 1.9 mg/dL (1.6-2.3); Potassium 3.1 mmol/L (3.4-5.0); Sodium 131 mmol/L (137-145)
--- NOTE | 2021-04-09 06:36 | P.PNIM_ITS ---
Progress Note: A&P Assessment and Plan (1) Gastritis determined by endoscopy: Code(s): K29.70 - Gastritis, unspecified, without bleeding Status: Acute Assessment and Plan: * EGD done 04/08/21 * Superficial gastritis found in the body of the stomach * Gastritis had erythematous and nonerosive changes * Biopsies taken * GI following * [place] diet * Protonix 40mg PO daily * IV antibiotics * WBC trending down * Still reports nausea * MRCP ordered (2) Epigastric abdominal pain: Code(s): R10.13 - Epigastric pain Status: Acute Assessment and Plan: * CT findings indicate dilated bile duct and pancreatic duct, no obstruction or stones noted * MRCP scheduled for 04/09/21 * GI consult thank you for your recommendations * EGD scheduled found gastritis with no perforation * IV Levaquin and Flagyl for possible bacterial infection * IV fluids for hydration * [place] diet, NPO for MRCP (3) Abnormal computed tomography of abdomen and pelvis: Code(s): R93.5 - Abnormal findings on diagnostic imaging of other abdominal regions, including retroperitoneum Status: Acute Assessment and Plan: * CT shows dilated common bile and pancreatic ducts without definitive obstruction. * MRCP ordered for further evaluation. * See above (4) Hypertension: Code(s): I10 - Essential (primary) hypertension Status: Acute Assessment and Plan: * Current blood pressure 138/82 * Continue Valsartan 160mg PO Daily, Hydrochlorothiazide 25mg PO Daily * Could be elevated due to pain * Trend blood pressure * Adjust medications as needed (5) Hypokalemia: Code(s): E87.6 - Hypokalemia Status: Acute Assessment and Plan: * K is 2.8 today, repeat was 3.1 * 60mcg PO once * trend labs * Replace as needed (6) Hypomagnesemia: Code(s): E83.42 - Hypomagnesemia Status: Acute Assessment and Plan: * Mag 1.9 * Replaced with 1gm IV (04/08/21) * Trend labs * Labs in the am (7) Primary insomnia: Code(s): F51.01 - Primary insomnia Status: Acute Assessment and Plan: * Continue home ambein * Reduce dose due to renal function (8) Leukocytosis: Code(s): D72.829 - Elevated white blood cell count, unspecified Status: Acute Assessment and Plan: * WBC 16.9 on admission * Trending down to 10 today * Started on empiric IV Levaquin and Flagyl * Trend labs * infectious source could be the gastritis * EGD found gastritis without perforation but reddened (9) Hyponatremia: Code(s): E87.1 - Hypo-osmolality and hyponatremia Status: Acute Assessment and Plan: * Na 131 * Trend labs * NS at 75ml/hr * Could be related to hypervolemia * Pt is over by about 1L (10) Electrolyte abnormality: Code(s): E87.8 - Other disorders of electrolyte and fluid balance, not elsewhere classified Status: Acute Assessment and Plan: * Mild hyponatremia (sodium 131), hypokalemia (potassium 3.1), and hypochloremia (chloride 99). * Possible dehydration * Hold hydrochlorothiazide on hold for now * Replace as needed (11) Chronic pain syndrome: Code(s): G89.4 - Chronic pain syndrome Status: Chronic Assessment and Plan: * fentanyl patch *
--- NOTE | 2021-04-09 06:36 | PM.IMPN ---
Progress Note: A&P Assessment and Plan (1) Gastritis determined by endoscopy: Code(s): K29.70 - Gastritis, unspecified, without bleeding Status: Acute Assessment and Plan: EGD done 04/08/21 Superficial gastritis found in the body of the stomach Gastritis had erythematous and nonerosive changes Biopsies taken GI following [place] diet Protonix 40mg PO daily IV antibiotics WBC trending down Still reports nausea MRCP ordered (2) Epigastric abdominal pain: Code(s): R10.13 - Epigastric pain Status: Acute Assessment and Plan: CT findings indicate dilated bile duct and pancreatic duct, no obstruction or stones noted MRCP scheduled for 04/09/21 GI consult thank you for your recommendations EGD scheduled found gastritis with no perforation IV Levaquin and Flagyl for possible bacterial infection IV fluids for hydration [place] diet, NPO for MRCP (3) Abnormal computed tomography of abdomen and pelvis: Code(s): R93.5 - Abnormal findings on diagnostic imaging of other abdominal regions, including retroperitoneum Status: Acute Assessment and Plan: CT shows dilated common bile and pancreatic ducts without definitive obstruction. MRCP ordered for further evaluation. See above (4) Hypertension: Code(s): I10 - Essential (primary) hypertension Status: Acute Assessment and Plan: Current blood pressure 138/82 Continue Valsartan 160mg PO Daily, Hydrochlorothiazide 25mg PO Daily Could be elevated due to pain Trend blood pressure Adjust medications as needed (5) Hypokalemia: Code(s): E87.6 - Hypokalemia Status: Acute Assessment and Plan: K is 2.8 today, repeat was 3.1 60mcg PO once trend labs Replace as needed (6) Hypomagnesemia: Code(s): E83.42 - Hypomagnesemia Status: Acute Assessment and Plan: Mag 1.9 Replaced with 1gm IV (04/08/21) Trend labs Labs in the am (7) Primary insomnia: Code(s): F51.01 - Primary insomnia Status: Acute Assessment and Plan: Continue home ambein Reduce dose due to renal function (8) Leukocytosis: Code(s): D72.829 - Elevated white blood cell count, unspecified Status: Acute Assessment and Plan: WBC 16.9 on admission Trending down to 10 today Started on empiric IV Levaquin and Flagyl Trend labs infectious source could be the gastritis EGD found gastritis without perforation but reddened (9) Hyponatremia: Code(s): E87.1 - Hypo-osmolality and hyponatremia Status: Acute Assessment and Plan: Na 131 Trend labs NS at 75ml/hr Could be related to hypervolemia Pt is over by about 1L (10) Electrolyte abnormality: Code(s): E87.8 - Other disorders of electrolyte and fluid balance, not elsewhere classified Status: Acute Assessment and Plan: Mild hyponatremia (sodium 131), hypokalemia (potassium 3.1), and hypochloremia (chloride 99). Possible dehydration Hold hydrochlorothiazide on hold for now Replace as needed (11) Chronic pain syndrome: Code(s): G89.4 - Chronic pain syndrome Status: Chronic Assessment and Plan: fentanyl patch Roxicodone 5mg PO BID PRN, Percocet 5/325 1 tab PO BID PRN Continue home meloxicam, hold ketorolac 10mg PO Q6hr PRN for now On long term care phlebotomist treatment at home (12) Chronic obstructive pulmonary disease: Code(s): J44.9 - Chronic obstructive pulmonary disease, unspecified Status: Acute Assessment and Plan: No acute issues at this time Chest xray shows hyperinflation Time Spent With Patient Time with patient: Greater than 35 minutes Subjective Date/time seen: 04/09/21 07:20 Interval history: Patient is a 71 year old female here for nausea and vomiting. Patient stated that she still little losses however she
--- NOTE | 2021-04-09 08:30 | WPDGIPROGNO ---
Progress Note: A&P Assessment and Plan (1) Gastritis determined by endoscopy: Code(s): K29.70 - Gastritis, unspecified, without bleeding Status: Acute Assessment and Plan: Gastritis evident by endoscopy may account for her epigastric pain. This is nonspecific. Plan to keep on PPI for a month and then as needed subsequently. She should avoid nonsteroidal anti-inflammatory agents. [place] diet. (2) Abnormal computed tomography of abdomen and pelvis: Code(s): R93.5 - Abnormal findings on diagnostic imaging of other abdominal regions, including retroperitoneum Status: Acute Assessment and Plan: CT scan suggest dilatation to the biliary tree and pancreas. Appears minimal on my review. Plan is for MRCP to evaluate more thoroughly. This been noted on previous exams over several years time. Likely chronic. LFTs are normal suggesting no significant obstruction. (3) Epigastric abdominal pain: Code(s): R10.13 - Epigastric pain Status: Acute Assessment and Plan: Severe epigastric pain at the time of presentation is now resolved. She does have some residual nausea. Plan is to continue bland diet and PPI therapy. Hopefully discharge today if MRCP unremarkable. Subjective Date/time seen: 04/09/21 08:31 Patient more comfortable today. Still reports some underlying nausea. Denies abdominal pain. Review of Systems Review of Systems: All systems reviewed & are unremarkable except as noted in HPI and below Exam Narrative: Physical exam reveals patient to be alert. Vital signs stable. HEENT exam is unremarkable. She has no icterus. Lungs are clear. Heart without murmur. Abdomen bowel sounds present soft nontender no organomegaly. Objective Data Vital Signs Vital Signs: Vital Signs - 24 hr 04/08/21 09:13 04/08/21 09:52 04/08/21 10:02 Temperature 98.4 F Pulse Rate 89 105 H 85 Respiratory Rate 14 30 H 26 H Blood Pressure 174/86 H 138/98 H 160/103 H Pulse Oximetry 100 100 100 04/08/21 10:12 04/08/21 13:57 04/08/21 16:00 Temperature 98.6 F 98.5 F Pulse Rate 77 92 90 Respiratory Rate 18 16 18 Blood Pressure 165/100 H 154/78 H 152/74 H Pulse Oximetry 100 97 96 04/08/21 19:59 04/08/21 20:00 04/09/21 03:49 Temperature 98.0 F 98 F Pulse Rate 57 L 57 L 82 Respiratory Rate 17 17 17 Blood Pressure 150/59 H 177/100 H Pulse Oximetry 96 96 98 04/09/21 05:00 Temperature Pulse Rate Respiratory Rate Blood Pressure 138/82 Pulse Oximetry Intake/Output Intake/Output: Intake & Output 04/06/21 04/07/21 04/08/21 04/09/21 23:59 23:59 23:59 23:59 Intake Total 1450 1840 300 Output Total 2500 Balance 1450 -660 300 Meds/Results Medications: Active Medications Generic Name Dose Route Start Last Admin Trade Name Freq PRN Reason Stop Dose Admin Cyclobenzaprine HCl 10 mg 04/07/21 23:00 04/09/21 03:42 Cyclobenzaprine Hcl 10 Mg Tablet PO 10 mg TID PRN Administration muscle spasm Estradiol 0.5 mg 04/08/21 09:00 04/08/21 10:59 Estradiol 0.5 Mg Tablet PO 0.5 mg DAILY OSCAR Administration Fentanyl 25 mcg 04/07/21 21:00 04/08/21 00:13 Fentanyl (*Crx) 25 Mcg Patch TRANSDERM 25 mcg Q72H OSCAR Administration Hydrochlorothiazide 25 mg 04/08/21 09:00 04/08/21 10:59 Hydrochlorothiazide 25 Mg Tablet PO 25 mg QAM OSCAR Administration Hydrocortisone 1 applic 04/08/21 02:39 Hydrocortisone (Proctozone-Hc) 2.5% Cream 30 Gm Tube RECTAL DAILY PRN hemorrhoids Sodium Chloride 1,000 mls @ 75 mls/hr 04/07/21 11:45 04/08/21 04:07 Normal Saline Iv IV CONT 75 mls/hr .[id number] OSCAR Administration Levofloxacin/Dextrose 750 mg in 150 mls @ 100 mls/hr 04/08/21 12:00 04/08/21 15:58 Levaquin 750 Mg/D5w 150 Ml IVPB 100 mls/hr Q24H OSCAR Administration Metronidazole 500 mg in 100 mls @ 100 mls/hr 04/07/21 18:00 04/09/21 07:10 Flagyl 500 Mg/Iso Soln 100 Ml IVPB Infused Q6HR OSCAR I
[2021-04-09] MEDS: POTASSIUM CHLORIDE 20 MEQ TABLET 60 MEQ PO (09:47)
[2021-04-09] MEDS: MELOXICAM 7.5 MG TABLET 15 MG PO (09:47)
[2021-04-09] MEDS: VALSARTAN 160 MG TABLET PO (09:48)
[2021-04-09] MEDS: polyethylene glycoL 3350 17 GM POWD.PACK PO (09:48)
[2021-04-09] MEDS: PANTOPRAZOLE 40 MG TABLET PO (09:48)
[2021-04-09] MEDS: hydroCHLOROthiazide 25 MG TABLET PO (09:48)
[2021-04-09] MEDS: oxyCODONE/ACETAMINOPHEN (*CRX) 5-325 MG TABLET 1 TABLET PO (10:01)
[2021-04-09] MEDS: estradioL 0.5 MG TABLET PO (10:02)
--- NOTE | 2021-04-09 15:26 | P.DS_ITS ---
DS: Admitting Diagnosis Discharge Date Date of service is 04/09/2021 at 3:00 p.m. Admitting Diagnosis Gastritis DS: Discharge Diagnosis Discharge Diagnosis (1) Gastritis determined by endoscopy: Code(s): K29.70 - Gastritis, unspecified, without bleeding Status: Acute Assessment and Plan: * EGD done 04/08/21 * Superficial gastritis found in the body of the stomach * Gastritis had erythematous and nonerosive changes * Biopsies taken * GI following * [place] diet * Protonix 40mg PO daily * IV antibiotics * WBC trending down * Still reports nausea * MRCP 1. Biliary and pancreatic duct dilatation. No obstructing mass identified on this MRI or yesterday's endoscopy. 2. 10 mm cystic lesion of the pancreas with main duct communication, probably benign. Abdomen MRI without and with contrast is recommended in one year. (2) Epigastric abdominal pain: Code(s): R10.13 - Epigastric pain Status: Acute Assessment and Plan: * CT findings indicate dilated bile duct and pancreatic duct, no obstruction or stones noted * MRCP scheduled for 04/09/21 * GI consult thank you for your recommendations * EGD scheduled found gastritis with no perforation * IV Levaquin and Flagyl for possible bacterial infection * IV fluids for hydration * [place] diet, NPO for MRCP (3) Abnormal computed tomography of abdomen and pelvis: Code(s): R93.5 - Abnormal findings on diagnostic imaging of other abdominal regions, including retroperitoneum Status: Acute Assessment and Plan: * CT shows dilated common bile and pancreatic ducts without definitive obstruction. * MRCP ordered for further evaluation. * See above (4) Hypertension: Code(s): I10 - Essential (primary) hypertension Status: Acute Assessment and Plan: * Current blood pressure 138/82 * Continue Valsartan 160mg PO Daily, Hydrochlorothiazide 25mg PO Daily * Could be elevated due to pain * Trend blood pressure * Adjust medications as needed (5) Hypokalemia: Code(s): E87.6 - Hypokalemia Status: Acute Assessment and Plan: * K is 2.8 today, repeat was 3.1 * 60mcg PO once * trend labs * Replace as needed (6) Hypomagnesemia: Code(s): E83.42 - Hypomagnesemia Status: Acute Assessment and Plan: * Mag 1.9 * Replaced with 1gm IV (04/08/21) * Trend labs * Labs in the am (7) Primary insomnia: Code(s): F51.01 - Primary insomnia Status: Acute Assessment and Plan: * Continue home ambein * Reduce dose due to renal function (8) Leukocytosis: Code(s): D72.829 - Elevated white blood cell count, unspecified Status: Acute Assessment and Plan: * WBC 16.9 on admission * Trending down to 10 today * Started on empiric IV Levaquin and Flagyl * Trend labs * infectious source could be the gastritis * EGD found gastritis without perforation but reddened (9) Hyponatremia: Code(s): E87.1 - Hypo-osmolality and hyponatremia Status: Acute Assessment and Plan: * Na 131 * Trend labs * NS at 75ml/hr * Could be related to hypervolemia * Pt is over by about 1L (10) Electrolyte abnormality: Code(s): E87.8 - Other disorders of electrolyte and fluid balance, not elsewhere classified Status: Acute
--- NOTE | 2021-04-09 15:26 | PM.DS ---
DS: Admitting Diagnosis Discharge Date Date of service is 04/09/2021 at 3:00 p.m. Admitting Diagnosis Gastritis DS: Discharge Diagnosis Discharge Diagnosis (1) Gastritis determined by endoscopy: Code(s): K29.70 - Gastritis, unspecified, without bleeding Status: Acute Assessment and Plan: EGD done 04/08/21 Superficial gastritis found in the body of the stomach Gastritis had erythematous and nonerosive changes Biopsies taken GI following [place] diet Protonix 40mg PO daily IV antibiotics WBC trending down Still reports nausea MRCP 1. Biliary and pancreatic duct dilatation. No obstructing mass identified on this MRI or yesterday's endoscopy. 2. 10 mm cystic lesion of the pancreas with main duct communication, probably benign. Abdomen MRI without and with contrast is recommended in one year. (2) Epigastric abdominal pain: Code(s): R10.13 - Epigastric pain Status: Acute Assessment and Plan: CT findings indicate dilated bile duct and pancreatic duct, no obstruction or stones noted MRCP scheduled for 04/09/21 GI consult thank you for your recommendations EGD scheduled found gastritis with no perforation IV Levaquin and Flagyl for possible bacterial infection IV fluids for hydration [place] diet, NPO for MRCP (3) Abnormal computed tomography of abdomen and pelvis: Code(s): R93.5 - Abnormal findings on diagnostic imaging of other abdominal regions, including retroperitoneum Status: Acute Assessment and Plan: CT shows dilated common bile and pancreatic ducts without definitive obstruction. MRCP ordered for further evaluation. See above (4) Hypertension: Code(s): I10 - Essential (primary) hypertension Status: Acute Assessment and Plan: Current blood pressure 138/82 Continue Valsartan 160mg PO Daily, Hydrochlorothiazide 25mg PO Daily Could be elevated due to pain Trend blood pressure Adjust medications as needed (5) Hypokalemia: Code(s): E87.6 - Hypokalemia Status: Acute Assessment and Plan: K is 2.8 today, repeat was 3.1 60mcg PO once trend labs Replace as needed (6) Hypomagnesemia: Code(s): E83.42 - Hypomagnesemia Status: Acute Assessment and Plan: Mag 1.9 Replaced with 1gm IV (04/08/21) Trend labs Labs in the am (7) Primary insomnia: Code(s): F51.01 - Primary insomnia Status: Acute Assessment and Plan: Continue home ambein Reduce dose due to renal function (8) Leukocytosis: Code(s): D72.829 - Elevated white blood cell count, unspecified Status: Acute Assessment and Plan: WBC 16.9 on admission Trending down to 10 today Started on empiric IV Levaquin and Flagyl Trend labs infectious source could be the gastritis EGD found gastritis without perforation but reddened (9) Hyponatremia: Code(s): E87.1 - Hypo-osmolality and hyponatremia Status: Acute Assessment and Plan: Na 131 Trend labs NS at 75ml/hr Could be related to hypervolemia Pt is over by about 1L (10) Electrolyte abnormality: Code(s): E87.8 - Other disorders of electrolyte and fluid balance, not elsewhere classified Status: Acute Assessment and Plan: Mild hyponatremia (sodium 131), hypokalemia (potassium 3.1), and hypochloremia (chloride 99). 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
[2021-04-09 16:00] VITALS: BP 152/90; PULSE 87; RESP 18; TEMP 36.4; O2SAT 100
== END 2021-04-09 17:00 | disposition home or self-care (01) ==
LOC: ANHED 11:49 → ANH2MED 14:17
PROVIDERS: Emergency Medicine; Internal Medicine; Internal Medicine Gastroenterology; Nurse Practitioner; Admitting Provider Internal Medicine; Emergency Provider Emergency Medicine; PCP Internal Medicine; Visit Provider Internal Medicine
PROC: 0DJ08ZZ Inspection of Upper Intestinal Tract, Via Natural or Artificial Opening Endoscopic (ICD-10-PCS; CPT 43235; principal; 2021-04-08 10:00)
DX: K29.70 Gastritis, unspecified, without bleeding (principal); R10.13 Epigastric pain; E87.1 Hypo-osmolality and hyponatremia; E87.6 Hypokalemia; J44.9 Chronic obstructive pulmonary disease, unspecified; I10 Essential (primary) hypertension; G89.29 Other chronic pain; M54.9 Dorsalgia, unspecified; D72.829 Elevated white blood cell count, unspecified; F51.01 Primary insomnia; R93.5 Abnormal findings on diagnostic imaging of other abdominal regions, including retroperitoneum; Z79.891 Long term (current) use of opiate analgesic
CPT/HCPCS: 43239; 36415; 71046; 74177; 74183; 76376; 80048; 80053; 80076; 83690; 83735; 84132; 84484; 85025; 85610; 85730; 87081; 88305; 93005; 96361; 96365; 96366; 96367; 96375; 96376; 99285; A9270; A9577; G0378; J0131; J1956; J2270; J2405; J2704; J3475; J3480; J7030; J7060; Q9967

== ENCOUNTER 2021-04-13 14:49 | Outpatient (CLI) | payer MEDICARE, SELFPAY ==
[2021-04-13 15:23] LABS: Anion Gap 7 mmol/L (8-16); Blood Urea Nitrogen 16 mg/dL (7-17); Calcium 9.1 mg/dL (8.4-10.2); Carbon Dioxide 29 mmol/L (22-30); Chloride 94 mmol/L (98-107); Estimated Glomerular Filt Rate > 60; Glucose 112 mg/dL (65-110); Potassium 3.8 mmol/L (3.4-5.0); Sodium 130 mmol/L (137-145)
== END 2021-04-13 14:50 | disposition home or self-care (01) ==
LOC: ANHLAB 14:51
PROVIDERS: PCP Internal Medicine; Visit Provider Nurse Practitioner
DX: E87.1 Hypo-osmolality and hyponatremia (principal); E87.6 Hypokalemia
CPT/HCPCS: 36415; 80048

== ENCOUNTER 2021-07-08 18:21 | Emergency (ER) | payer MEDICARE, SELFPAY ==
--- NOTE | ~2021-07-08 | XR_ITS ---
EXAMINATION: XR hand LT min 3V DATE: 07/08/2021 21:36 INDICATION: Trauma with pain and swelling to the left third-fifth digits post fall . Deformity at the fifth digit. TECHNIQUE: Posteroanterior, oblique and lateral views of the left hand were obtained. COMPARISON: None. FINDINGS: Transverse extra articular fracture across the metaphysis of the base of the fifth proximal phalanx. There is approximately 2 mm palmar displacement with significant dorsal and ulnar angulation. No othe r fractures identified. Mild polyarticular osteoarthritis at the distal interphalangeal joints. Chron ic appearing tiny exophytic density at the radial aspect of the second distal interphalangeal joint w ith overlying mild soft tissue swelling which could be either degenerative in etiology or sequela of chronic trauma to the radial collateral ligament. Similarly there is a tiny ossicle at the dorsal asp ect of the first interphalangeal joint without evident donor site similarly likely either degenerativ e or sequela of old trauma. IMPRESSION: 1. Mild palmar displacement and significant dorsal/ulnar angulation of an extra articular fracture at the base of the left fifth proximal phalanx. Reviewed, dictated and finalized at location H. TS MEDIA
[2021-07-08 18:25] VITALS: BP 154/102; PULSE 104; RESP 18; TEMP 36.7; O2SAT 100
--- NOTE | 2021-07-08 22:16 | ED.FALL ---
HPI - Fall General Chief Complaint: Fall Stated Complaint: fall, hand injury Time Seen by Provider: 07/08/21 21:26 Source: patient Mode of arrival: ambulatory Limitations: no limitations History of Present Illness HPI Narrative: 71-year-old with a history of hypertension here with complaints of fall. Patient states that she lost her balance and fell hit her left side of her face and left hand. She denies any head injury no history of loss of consciousness. . complaint: fall Onset (ago): hour(s) (6) Place fall occurred: home Loss of consciousness: none Prolonged down time: no Symptoms prior to fall: none Context: tripped/slipped Related Data Home Medications Medication Instructions Recorded Confirmed estradiol 0.5 mg PO DAILY 06/16/19 04/22/21 fentanyl 25 mcg TOPICAL USEASDIRECTD 06/16/19 04/22/21 oxycodone-acetaminophen 1 tablet PO BID PRN 06/16/19 04/22/21 polyethylene glycol 3350 [Miralax] 17 g PO DAILY 06/17/19 04/22/21 famciclovir 250 mg PO Q12H 04/07/21 04/22/21 Allergies Allergy/AdvReac Type Severity Reaction Status Date / Time adhesive tape Allergy Mild Rash Verified 04/22/21 13:42 Penicillins Allergy Unknown Unknown Verified 04/22/21 13:42 Review of Systems Review of Systems: All systems reviewed & are unremarkable except as noted in HPI and below Constitutional: Constitutional: Reports no additional constitutional complaints Eyes: Eyes: Reports no additional eye complaints ENT: Reports system reviewed and no additional complaints, except as documented Cardiovascular: Cardiovascular: Reports no additional cardiovascular complaints Respiratory: Respiratory: Reports no additional respiratory complaints Gastrointestinal: Gastrointestinal: Reports no additional gastrointestinal complaints Musculoskeletal: Musculoskeletal: Reports as per HPI [facility] Past Medical History Medical History Anxiety Chronic obstructive pulmonary disease Chronic pain syndrome Chronic low back pain on long-term opioid therapy. Degenerative disc disease Depression Hypertension Reactive airway disease Treadmill stress test negative for angina pectoris (05/2007) Vitamin D deficiency Surgical History Surgical History History of colonoscopy Done for evaluation of bright red blood per rectum per Dr. Yan in 2007. Internal hemorrhoids were noted, felt to be the source of the bleeding. History of hysterectomy History of lumbar discectomy Family History Family History Father Malignant neoplasm of prostate Family history of heart disease in male family member before age 55 Mother Carcinoma of colon Other Family history of cardiovascular disease Social History Social History Social History: Resides in [place] with her . No alcohol, tobacco, or illicit substance abuse. She designates her , Christopher as her surrogate decision maker. Code status: Full code. Second hand tobacco smoke exposure: No Alcohol intake: current Alcohol use details: not often at all Substance use: current Substance use type: marijuana Exam Narrative: GENERAL: Well-appearing, well-nourished, and in no acute distress. HEAD: Normocephalic, bruising noted on the left infraorbital area with minor abrasions EYES: PERRLA and EOMI. NECK: Supple. CHEST: Clear to auscultation. No respiratory distress. HEART: Regular rate and rhythm. No murmur heard. Normal peripheral pulses. ABDOMEN: Soft, nontender, nondistended, normal active bowel sounds. EXTREMITIES: Normal range of motion. No edema. left hand hematoma on the dorsum of the hand , 5 th finger is displaced. SKIN: Warm, dry, no rash. NEURO: No focal deficits. Alert and oriented x3. PSYCH: Normal mood and affect. Course Course Emergency Course: I
== END 2021-07-08 23:05 | disposition home or self-care (01) ==
PROVIDERS: Emergency Provider Family Medicine; PCP Internal Medicine
DX: S62.617A Displaced fracture of proximal phalanx of left little finger, initial encounter for closed fracture (principal); I10 Essential (primary) hypertension; J44.9 Chronic obstructive pulmonary disease, unspecified; G89.4 Chronic pain syndrome; E55.9 Vitamin D deficiency, unspecified; F41.9 Anxiety disorder, unspecified; F32.A Depression, unspecified; W18.39XA Other fall on same level, initial encounter
CPT/HCPCS: 29125; 73130; 99284

== ENCOUNTER 2021-07-15 11:53 | Outpatient (CLI) | payer MEDICARE, SELFPAY ==
--- NOTE | ~2021-07-15 | XR_ITS ---
EXAMINATION: XR facial bones min 3V EXAM DATE: 07/15/2021 12:21 INDICATION: Fall, bruising to left eye and cheek. TECHNIQUE: Frontal, Purnima's, lateral, submentovertex projections of the facial bones. There are no p rior studies for comparison. FINDINGS: There are no acute fractures identified. There are no acute orbital or facial bone fractu res or dislocations identified. There is no subcutaneous gas. The soft tissue is unremarkable. Th ere are no radiopaque foreign bodies. No appreciable sinus opacity. IMPRESSION: No acute osseous findings. Reviewed, dictated and finalized at location A. R TESTER PRIMARY IMPRESSION: No acute osseous findings.
== END 2021-07-15 11:54 | disposition home or self-care (01) ==
PROVIDERS: PCP Internal Medicine; Visit Provider Internal Medicine
DX: S00.83XA Contusion of other part of head, initial encounter (principal); X58.XXXA Exposure to other specified factors, initial encounter
CPT/HCPCS: 70150

== ENCOUNTER → 2021-07-20 01:03 | Outpatient (CLI) | payer MEDICARE, SELFPAY ==
[2021-07-20 21:23] LABS: SARS-CoV-2 RNA PCR Negative
== END ==
PROVIDERS: PCP Internal Medicine; Visit Provider Plastic Surgery
DX: Z01.812 Encounter for preprocedural laboratory examination (principal); Z20.822 Contact with and (suspected) exposure to COVID-19
CPT/HCPCS: C9803; U0003; U0005

== ENCOUNTER 2021-07-21 10:28 | Outpatient (CLI) | payer MEDICARE, SELFPAY ==
[2021-07-21 11:09] LABS: Anion Gap 8 mmol/L (8-16); Blood Urea Nitrogen 18 mg/dL (7-17); Calcium 9.2 mg/dL (8.4-10.2); Carbon Dioxide 29 mmol/L (22-30); Chloride 94 mmol/L (98-107); Estimated Glomerular Filt Rate > 60; Glucose 87 mg/dL (65-110); Sodium 131 mmol/L (137-145)
== END 2021-07-21 10:29 | disposition home or self-care (01) ==
LOC: ANHSURGERY 10:33
PROVIDERS: Anesthesiology; PCP Internal Medicine; Visit Provider Plastic Surgery
DX: I10 Essential (primary) hypertension (principal); Z01.818 Encounter for other preprocedural examination
CPT/HCPCS: 36415; 80048

== ENCOUNTER 2021-07-23 02:17 | Day surgery (SDC) | payer MEDICARE, SELFPAY ==
--- NOTE | 2021-07-20 10:45 | PC.NURSE ---
Report to the Outpatient Waiting Room, entrance under the green pavilion located off [facility], at time __1000 on date ___07/23/21____. OR Time: __1200 . - You and your visitor will be asked a series of questions to screen for COVID 19 for your protection. - A mask is required within the hospital. - Only one visitor is allowed at this time. Patient visitors will be guided where to wait when not with patient. Preoperative COVID Testing Requirements: No COVID Test needed if: (proof is required; if not received patient will have Rapid Test prior to entry) - Patient has received COVID Vaccine at least 14 days prior to procedure date or - Patient has positive COVID test result within last 90 days of surgery date. COVID Test needed if above criteria is not met If not COVID vaccinated a COVID test must be conducted within 72 hours of surgery and patient is asked to isolate self from time of testing until procedure. You will go to the [facility] Site for your COVID testing. The [facility] is located at the corner of [address] [facility]. You will only be called if COVID results are positive and your surgeon may reschedule your elective surgery date. Patients may have clear liquids (water, carbonated beverages, clear teas, apple juice) until 3 hours prior to surgery with a maximum of 20 ounces. - No food from midnight until time of surgery - Infants may have breast milk until 4 hours before surgery, infant formula 6 hours prior to surgery. - Children will be allowed to drink immediately following surgery. If applicable, please bring a bottle or sippy cup to assist with drinking. Juice, water, soda, and popsicles are readily available. For infants on formula, please bring formula the day of surgery. Pacifiers are allowed. Take the following medications with a SIP of water the morning of surgery: __ESCITALOPRAM,OXYCODONE IF NEEDED Medications to discontinue per physician ALL VITAMINS AND SUPPLEMENTS 3 DAYS PRE OP Date to take last dose___07/19/21 Please no make-up, nail yoruba, hairspray, perfume, deodorant, or body powder the day of surgery. No jewelry (including any body piercings) or valuables the day of surgery, leave them at home. Please take a shower or bath the night before, or the morning of, surgery with an antibacterial soap. Wear comfortable, loose fitting clothing. Children are encouraged to wear pajamas. - Jewelry must be removed prior to entering the operating room. Rings and piercings that are not removed may be cut off. - The hospital will not accept responsibility for valuables. - Please leave all valuables, including medications, at home the day of surgery. If you are going home after surgery, a licensed tier truck driver must drive you home. - NO public transportation without another adult. - We recommend that an adult stay with you for 24 hours following discharge. - We also recommend that you do not drive, make important decision, drink alcoholic beverages, or take any drugs that were not prescribed by your health care provider for at least 24 hours after your discharge time. For Pediatric surgeries, we recommend two adults accompany the child home (only one inside the building at this time). Follow any additional instructions given to you from your surgeon. Telephone instructions given to __PATIENT and asked if any additional questions and then verbalized understanding. Patient advised to call surgeon office or pre surgery nurse liaison [phone] if any additional questions.
[2021-07-20 10:48] VITALS: BMI 22.6
--- NOTE | ~2021-07-23 | XR_ITS ---
EXAMINATION: XR surgery orthopedic EXAM DATE: 07/23/2021 16:49 INDICATION: Closed Possible Open Reduction Lt Little Finger . TECHNIQUE: Fluoroscopy used during left 5th proximal phalangeal fixation performed by Dr. Carlos Pedersen MD. Radiologist was not present for the imaging or procedure. Total fluoroscopic time of 29 seconds. The DAP for this procedure was 0.014 mGym2. A total of 3 images sent to PACS from the exam . FINDINGS: Frontal, lateral images demonstrates 2 K wires traversing a left 5th proximal phalangeal f racture. Correlate with procedure note. IMPRESSION: Fluoroscopy used during fracture fixation. Reviewed, dictated and finalized at location A. E CHEF
--- NOTE | 2021-07-23 07:18 | WPDHPUPDATE1 ---
History and Physical Update Update Date/Time: 07/23/21 07:18 History and Physical has been reviewed, including an updated exam of the patient. There are NO changes in the patient's condition. Risks, benefits, and alternatives have been discussed and questions answered. Patient agrees to proceed with procedure.
[2021-07-23 10:36] LABS: Sodium 134 mmol/L (137-145)
[2021-07-23] MEDS: LACTATED RINGERS 1,000 ML 30 ML IV CONT ×2 (12:23→16:32)
[2021-07-23] MEDS: ACETAMINOPHEN 500 MG TABLET 1000 MG PO (12:24)
--- NOTE | 2021-07-23 12:32 | WPDANESEPPF ---
Anes - Initial Pre Proc Eval Procedure: Operation Date: 07/23/21 12:00 Proposed Procedures p Closed or Possible Open Reduction of Proximal Phalanx Left Small Finger - Carlos Pedersen MD Date/Time: 07/23/21 12:32 Surgeon: Carlos Pedersen MD Pre Op Diagnosis: left proximal phalanx small finger fracture Patient Data Age: 71 Gender: F Height: 1.68 m Weight: 63.5 kg Allergies Allergy/AdvReac Type Severity Reaction Status Date / Time adhesive tape Allergy Mild Rash Verified 07/23/21 12:12 Penicillins Allergy Unknown Unknown Verified 07/23/21 12:12 Home Medications Medication Instructions Recorded Confirmed Type estradiol 0.5 mg PO DAILY 06/16/19 07/20/21 History fentanyl 25 mcg TOPICAL USEASDIRECTD 06/16/19 07/20/21 History oxycodone-acetaminophen 1 tablet PO BID PRN 06/16/19 07/23/21 History polyethylene glycol 3350 [Miralax] 17 g PO DAILY 06/17/19 07/20/21 History hydrocortisone 2.5 % topical cream 1 applic RECTAL DAILY PRN #30 gm 05/07/20 07/20/21 Rx with perineal applicator ketorolac 10 mg tablet 10 mg PO Q6H PRN #30 tablet 04/22/21 07/20/21 Rx cyclobenzaprine 10 mg tablet 10 mg PO TID PRN #60 tablet 06/23/21 07/20/21 Rx ondansetron HCl 4 mg tablet 4 mg PO Q6H PRN #18 tablet 07/07/21 07/20/21 Rx escitalopram oxalate 20 mg tablet 20 mg PO DAILY #90 tablet 07/15/21 07/20/21 Rx famciclovir 250 mg tablet 250 mg PO Q12H #180 tablet 07/15/21 07/20/21 Rx pantoprazole 40 mg tablet,delayed 40 mg PO QAM #90 tablet 07/15/21 07/20/21 Rx release valsartan 160 See Rx Instructions .ROUTE 07/15/21 07/20/21 Rx mg-hydrochlorothiazide 25 mg tablet .COMPLEX #90 tablet meloxicam 15 mg PO DAILY 07/20/21 07/20/21 History zolpidem 12.5 mg PO PRN PRN 07/20/21 07/20/21 History Laboratory Tests 07/23/21 10:05 Sodium 134 mmol/L L mmol/L (137-145) Patient hx anesthesia problems: none Family hx anesthesia problems: none Results Review: All pre-operative results and documents have been reviewed as part of the pre-operative evaluation. [facility] Past Medical History Medical History Anxiety Chronic obstructive pulmonary disease Chronic pain syndrome Chronic low back pain on long-term opioid therapy. Degenerative disc disease Depression Hypertension Reactive airway disease Treadmill stress test negative for angina pectoris (05/2007) Vitamin D deficiency Surgical History Surgical History History of colonoscopy Done for evaluation of bright red blood per rectum per Dr. Yan in 2007. Internal hemorrhoids were noted, felt to be the source of the bleeding. History of hysterectomy History of lumbar discectomy Family History Family History Father Malignant neoplasm of prostate Family history of heart disease in male family member before age 55 Mother Carcinoma of colon Other Family history of cardiovascular disease Social History Social History Social History: Resides in [place] with her . No alcohol, tobacco, or illicit substance abuse. She designates her , Christopher as her surrogate decision maker. Code status: Full code. Second hand tobacco smoke exposure: No Alcohol intake: current Alcohol use details: not often at all Substance use: current Substance use type: marijuana Last use: 07/19/21 Living arrangements: with family Darrel Barnard Final PreProcedure Day of Procedure 07/23/21 12:32 Patient weight: normal Heart: regular rate and rhythm Lungs: decreased breath sounds Airway: Mallampati scale class 1 Neurological: alert and oriented Last oral intake: >/= 8 hours ASA classification: III Emergent: no Anesthetic plan: proceed Anesthesia type and monitoring: general LMA and standard monitoring Results Review: All pre-operative r
[2021-07-23 12:35] VITALS: BP 139/86; PULSE 86; RESP 18; TEMP 36.8; O2SAT 100; BMI 21.5
--- NOTE | 2021-07-23 12:39 | SUR.PREOP ---
PT STATES SHE REMOVED HER FENTANYL PATCH THIS MORNING PRIOR TO ARRIVAL AT THE HOSPITAL
--- NOTE | 2021-07-23 12:39 | SUR.PREOP ---
PT AWARE DR MARQUEZ BEHIND APPROX 45 MIN
[2021-07-23] MEDS: ceFAZolin 2 GM/D5W 50 ML 2 GM/50 ML BAG IVPB (14:51)
--- NOTE | 2021-07-23 15:01 | SUR.PREOP ---
LATE NOTE, 1230; DR CARTER NOTIFIED OF SODIUM LEVEL OF 134 DRAWN TODAY.
[2021-07-23] MEDS: LIDO 1%/EPINEPHRINE 1:100,000 50 ML VIAL INFILTRATE (16:19)
[2021-07-23] MEDS: BUPIVACAINE HCL 0.5% PF 30 ML VIAL INFILTRATE (16:20)
[2021-07-23 16:32] VITALS: BP 139/83; PULSE 87; RESP 18; TEMP 36.6; O2SAT 98
[2021-07-23 16:45] VITALS: BP 128/76; PULSE 80; RESP 20; O2SAT 98
[2021-07-23 16:50] VITALS: BP 149/93; PULSE 78; RESP 16
[2021-07-23] MEDS: oxyCODONE HCL (*CRX) 5 MG TAB IR PO (17:01)
[2021-07-23 17:20] VITALS: BP 160/93; PULSE 76; RESP 16
--- NOTE | 2021-07-23 17:26 | P.OP_ITS ---
Procedure Note - Detailed Date of Procedure 07/23/21 Pre-op Diagnosis left proximal phalanx small finger fracture Post-op Diagnosis same Procedure Performed Open reduction with internal fixation of the left 5th proximal phalanx proximal metaphyseal fracture Surgeon Carlos Pedersen MD Optical Glass Wet Inspector Rashida Gillespie Anesthesia MAC Indications Closed displaced fracture Findings Non comminuted Description of Procedure The digit was marked in the holding area with the patient's were noticed. She was taken to the operating room and placed supine on the operating table. A time-out was held and confirmed. She was given sedation anesthetic and the left upper extremity was prepped and draped in the usual fashion. An attempt was made to do a closed reduction on this fracture and we were not able to satisfactorily reduce the fracture. At that point the local area was infiltrated with 1% lidocaine with epinephrine the hand was elevated and exsanguinated and the tourniquet inflated to 250 mmHg. A dorsal midline incision was made centered on the metacarpophalangeal joint. Skin flaps were carefully elevated the extensor tendon was divided down the midline extending just over the joint. The dorsal aspect of the proximal fragment was carefully exposed. Was able to reduce the fracture fairly easily but it would not remain without fixation. 2.035 in C wires were driven from the ulnar base of the proximal phalanx in different directions 1 longitudinal and the other exiting the radial cortex in the midshaft Images confirmed the satisfactory reduction. Part of the ulnar sagittal band was divided to prevent snagging of this structure preventing range of motion at the metacarpophalangeal joint. The extensor tendon was repaired with 4-0 Prolene interrupted fashion knots buried the skin was closed with running 5 0 nylon small cuts were made to allow the pins to penetrate through the dorsal skin. The pins were cut and plastic caps applied to the ends. The tourniquet was released. Pressure was held on the hand for several minutes until bleeding stopped. A soft bandage with Xeroform as a 1st layer was applied. An ulnar gutter splint encompassing the ring and small fingers with the IP joints extended and the metacarpophalangeal joints flexed approximately 50? was applied to the forearm. 10 milliliter of 0.5% Marcaine were infiltrated in the region prior to application of the splint. The patient had been given Ancef 2 g Toradol 15 mg and Tylenol 1000 mg preop. At the time of discharge she is given instructions in wound care and follow-up. She was E prescribed oxycodone 5/325 9. for postop pain control. She is a chronic user of fentanyl patch and oxycodone 10/325 through pain management. Estimated Blood Loss 10 Drains No Packing No Pathology none sent Complications No immediate complications Condition stable Disposition PACU
== END 2021-07-23 17:35 | disposition home or self-care (01) ==
PROVIDERS: PCP Internal Medicine; Visit Provider Plastic Surgery
PROC: (CPT 26735; principal; 2021-07-23 12:00)
DX: S62.617A Displaced fracture of proximal phalanx of left little finger, initial encounter for closed fracture (principal); W19.XXXA Unspecified fall, initial encounter; J44.9 Chronic obstructive pulmonary disease, unspecified; I10 Essential (primary) hypertension; F41.8 Other specified anxiety disorders; E55.9 Vitamin D deficiency, unspecified; G89.29 Other chronic pain; M54.50 Low back pain, unspecified; Z79.891 Long term (current) use of opiate analgesic; F12.90 Cannabis use, unspecified, uncomplicated
CPT/HCPCS: 26735; 36415; 80048; 84295; A9270; C1713; C9803; J0690; J2270; J2405; J2704; J3010; J7120; U0003; U0005

== ENCOUNTER 2021-08-27 11:49 | Outpatient (CLI) | payer MEDICARE, SELFPAY ==
--- NOTE | ~2021-08-27 | XR_ITS ---
XR hand LT min 3V DATE: 08/27/2021 12:04 INDICATION: Proximal phalanx fracture of fifth digit TECHNIQUE: 3 views of right hand COMPARISON: 07/08/2021 left hand FINDINGS: The fracture line at the base of the proximal phalanx of the fifth digit is no longer evide nt, consistent with interval healing, without significant displacement regulation deformity. No other fracture or dislocation. No periosteal reaction or bone destruction. Mild polyarticular osteoarthritis. IMPRESSION: Healed fracture of base of fifth digit proximal phalanx Reviewed, dictated and finalized at location A. INTERPRETER
== END 2021-08-27 11:50 | disposition home or self-care (01) ==
LOC: ANHIMG 11:53
PROVIDERS: PCP Internal Medicine; Visit Provider Internal Medicine
DX: S62.615D Displaced fracture of proximal phalanx of left ring finger, subsequent encounter for fracture with routine healing (principal); X58.XXXD Exposure to other specified factors, subsequent encounter
CPT/HCPCS: 73130

== ENCOUNTER 2021-11-04 13:30 | Outpatient (RCR) | payer MEDICARE, SELFPAY ==
--- NOTE | 2021-09-09 14:08 | PTOPEVAL ---
PHYSICAL THERAPY INITIAL EVALUATION. Thank you for referring Lisbet Davidson to [facility].? The patient is scheduled to be seen for therapy? 2x/week for 4 weeks. Please review, sign, date and return this plan of care KYRA. I agree with and certify that the following plan of care is medically necessary. Referring Physician Date Attending Provider: Miles Vincent DO *PT Outpatient Evaluation Start: 09/09/21 Subjective Information Pt states she has had 2 bad Query Text:As Reported By Patient/ falls in the last year. The Family first she fell broke two ribs, and punctured a lung, the second she fell and broke her hand. Her first fall was to missing a step and not being able to catch herself, the second she states she had too much on her mind, and was not paying attention . Per pt she has stenosis in her low back. Pt states she has chronic low back pain for the last 20+ years. Pt states she looses her balance often. Pt reports she cannot stand still longer than 20 minutes before she needs to sit or walk around, this is why her has started helping make meals. Pt states she does pool exercises and walks 3x/wk. She states she has been more dependent with her actives recently due to her back pain, she is upset by a need for assistance. Pain Assessment Upper Neck Reported Pain Level 5 Pain Description Aching,Dull Pain Frequency Chronic Lowest Pain Intensity 2 Greatest Pain Intensity 10 Other Pain Aggravating Factors Random, reports no pattern she can notice Additional Pain Comments 10/10 pain about a month ago Lower Back Reported Pain Level 4 Pain Description Aching,Dull Pain Frequency Chronic,Continuous Lowest Pain Intensity 2 Greatest Pain Intensity 9 Pain Aggravating Factors Bending,Lifting,Weight Bearing /Standing Cervical and Lumbar ROM Cervical Flexion (0-60) 50 Cervical Flexion (0-70) 60 Cervical Lateral Flexion Right (0-50)
--- NOTE | 2021-10-02 12:30 | PCPTNOTE ---
Patient called & cancelled scheduled appointment this date due to not feeling well.
--- NOTE | 2021-10-07 13:38 | PTOPEVAL ---
PHYSICAL THERAPY PROGRESS NOTE. Thank you for referring Lisbet Davidson to [facility].? The patient is scheduled to be seen for therapy? 1x/week for 4 weeks. Please review, sign, date and return this plan of care KYRA. I agree with and certify that the following plan of care is medically necessary. Referring Physician Date Attending Provider: Miles Vincent DO *PT Outpatient Evaluation Start: 09/09/21 Evaluation Information Diagnosis Cervicalgia, dorsalgia Onset chronic Subjective Information Pt states she is feeling a lot Query Text:As Reported By Patient/ better, she states she is Family feeling a lot looser. She states she does not think she will ever be able to stand as long she wants because of her stenosis. She states she is not completely better, but has seen improvement. She states her neck ROM has increased. She states shes going to continue to work on her posture. Pain Assessment Upper Neck Reported Pain Level 3 Greatest Pain Intensity 7 Lower Back Reported Pain Level 3 Greatest Pain Intensity 8 Cervical and Lumbar ROM Cervical ROM Cervical Flexion (0-60) 50 Cervical Extension (0-70) 60 Cervical Lateral Flexion Right (0-50) 34 Cervical Lateral Flexion Left (0-50) 42 Cervical Rotation Right (0-90) 65 Cervical Rotation Left (0-90) 62 Cervical ROM 75% of Normal Lumbar ROM Lumbar Flexion Active Ankle Lateral Flexion L lat flexion more limited Lateral Rotation Right (0-45) 30 Lateral Rotation Left (0-45) 45 Lumbar ROM 75% of Normal Normal Lumbar Segmental Motion No: hypomobile Lower Extremity Muscle Strength Testing General Lower Extremity Strength WFL/Left,WFL/Right Gross Lower Extremity Strength Grossly 4+/5 in B LE. Able to lift and carry 10 lb box 30 ft from ground Posture Posture Evaluation View Posterior Head/C-Spine Posture Forward Head Shoulder Posture (L) Rounded,(R) Rounded Balance Assessment 5 Time Sit to Stand Time in Seconds 13 5 Time Sit to Stand Comments without use of UEs Gait Assessment 2 Minute Walk Total Distance Walked (feet) 580 2 Minute Walk Gait Speed Score (feet/sec 4.83 Number of Breaks Required 0 PT Clinical Summary Lisbet presents to therapy
--- NOTE | 2021-11-04 14:01 | PTOPEVAL ---
PHYSICAL THERAPY PROGRESS REPORT AND DISCHARGE SUMMARY. Thank you for referring Lisbet Davidson to [facility].? The patient is to be discharged from physical therapy services at this time. Please review, sign, date and return this plan of care KYRA. I agree with and certify that the following plan of care is medically necessary. Referring Physician Date Attending Provider: Miles Vincent, DO Evaluation Information Diagnosis Cervicalgia, dorsalgia Onset chronic Subjective Information Pt states her neck has had the Query Text:As Reported By Patient/ most improvement. She states Family her back has also made good improvements. She states I now feel in control of my health and I feel so much more confident . Pt states she felt hopeless for so long due to her pain, but now she knows what she can do to modify her pain. Pt states she knows what causes her pain and is now able to make the choice if the pain is worth doing what she wants to do. Pain Assessment Self Report Pain Assessment Upper Neck Reported Pain Level 1 Greatest Pain Intensity 5 Lower Back Reported Pain Level 3 Greatest Pain Intensity 9 Cervical and Lumbar ROM Cervical ROM Cervical Flexion (0-60) 50 active Cervical Flexion (0-70) 60 passive Cervical Extension (0-70) 68 active Cervical Lateral Flexion Right (0-50) 36 active Cervical Lateral Flexion Left (0-50) 42 active Cervical Rotation Right (0-90) 85 active Cervical Rotation Left (0-90) 70 active Cervical ROM WNL Lumbar ROM Lumbar Flexion Active Ankle,Floor Lumbar Extension (0-40) 40 active Query Text:Active in Degrees Lateral Flexion L lat flexion slightly more Query Text:Active Hands to: limited, close to lateral knee joint line Lateral Rotation Right (0-45) 40 active Lateral Rotation Left (0-45) 45 active Lumbar ROM 75% of Normal Normal Lumbar Segmental Motion No: hypombile Lower Extremity Muscle Strength Testing General Lower Extremity Strength WFL/Left,WFL/Right Gross Lower Extremity Strength Grossly 4+/5 in B LE. Able to lift and carry 10 lb box 30 ft from ground Posture Sitting Position Posture Evaluation View Posterior Head/C-Spine Posture Forward Head Balance Assessment Time Up Go (TUG) Ti
== END 2021-11-05 08:11 | disposition home or self-care (01) ==
LOC: ANHPT 13:30
PROVIDERS: PCP Internal Medicine; Visit Provider Internal Medicine
DX: M54.2 Cervicalgia (principal); M54.9 Dorsalgia, unspecified; G89.29 Other chronic pain
CPT/HCPCS: 20560; 97110; 97112; 97140; 97161; 97530

== ENCOUNTER 2022-03-16 11:17 | Outpatient (CLI) | payer MEDICARE, SELFPAY ==
[2022-03-16 13:44] LABS: Thyroid Stimulating Hormone 0.697 uIU/mL (0.465-4.680)
[2022-03-16 13:55] LABS: Alanine Aminotransferase 19 U/L (6-35); Albumin Level 4.1 g/dL (3.5-5.1); Alkaline Phosphatase 53 U/L (38-126); Anion Gap 8 mmol/L (8-16); Aspartate Amino Transferase 33 U/L (14-36); Bilirubin,Total 0.5 mg/dL (0.2-1.3); Blood Urea Nitrogen 17 mg/dL (7-17); Calcium 9.2 mg/dL (8.4-10.2); Carbon Dioxide 29 mmol/L (22-30); Chloride 91 mmol/L (98-107); Cholesterol 161 mg/dL (0-200); Estimated Glomerular Filt Rate > 60; Glucose 81 mg/dL (65-110); HDL Direct 100 mg/dL; Potassium 4.1 mmol/L (3.4-5.0); Sodium 128 mmol/L (137-145); Triglycerides 41 mg/dL (<150)
[2022-03-16 14:04] LABS: LDL Cholesterol Direct 44 mg/dL
[2022-03-19 04:03] LABS: Hepatitis C Virus Antibody Negative (Negative)
== END 2022-03-16 11:18 | disposition home or self-care (01) ==
LOC: ANHLAB 11:23
PROVIDERS: PCP Internal Medicine; Visit Provider Nurse Practitioner
DX: Z79.899 Other long term (current) drug therapy (principal); Z11.59 Encounter for screening for other viral diseases; Z13.220 Encounter for screening for lipoid disorders
CPT/HCPCS: 36415; 80053; 80061; 84443; 86803

== ENCOUNTER 2022-03-30 15:04 | Outpatient (CLI) | payer MEDICARE, SELFPAY ==
--- NOTE | ~2022-03-30 | MM_ITS ---
EXAMINATION: MM screening dmitriy BI w vic HISTORY: Screening mammogram TECHNIQUE: Craniocaudal and mediolateral oblique 3-D tomosynthesis images were obtained and synthetic 2-D images were generated. CAD analysis was submitted and interpreted. COMPARISON: No prior mammogram is available for comparison at this institution. BREAST PARENCHYMAL COMPOSITION: The breasts are heterogeneously dense, which may obscure small masses . FINDINGS: There is no evidence of suspicious mass, calcification, or architectural distortion to sugg est malignancy in either breast. There has been no suspicious interval change. IMPRESSION: 1. No mammographic evidence of malignancy. 2. Recommend routine screening mammography in one year. BI-RADS Category 1: Negative Reviewed, dictated and finalized at location A.
== END 2022-03-30 15:05 | disposition home or self-care (01) ==
PROVIDERS: PCP Internal Medicine; Visit Provider Internal Medicine
DX: Z12.31 Encounter for screening mammogram for malignant neoplasm of breast (principal)
CPT/HCPCS: 77063; 77067

== ENCOUNTER 2022-06-17 14:40 | Outpatient (CLI) | payer MEDICARE, SELFPAY ==
--- NOTE | ~2022-06-17 | XR_ITS ---
XR lumbar spine 2-3V DATE: 06/17/2022 14:59 INDICATION: Postlaminectomy syndrome. Chronic back pain. TECHNIQUE: AP, lateral and coned lateral lumbosacral views COMPARISON: None FINDINGS: There is slight levoscoliosis of the lower thoracic and lumbar spine. There is anterior and interbody spinal fusion at L4-5 and L5-S1. There is grade 1 approximately 6 mm anterolisthesis and moderately severe degenerative disc disease a t L3-4. There is mild degenerative disc disease at L1-2 and L2-3. No bone destruction is evident. The included lower thoracic and lumbar pedicles are intact. The sacral iliac joints are unremarkable. IMPRESSION: Status post anterior and interbody fusion at L4-5 and L5-S1 Moderately severe degenerative disc disease and mild grade 1 anterolisthesis at L3-4 Mild degenerative disc disease at L1-2 and L2-3 Reviewed, dictated and finalized at location B. MER SAWYER
== END 2022-06-17 14:41 | disposition home or self-care (01) ==
PROVIDERS: PCP Internal Medicine; Visit Provider Nurse Practitioner Family
DX: M96.1 Postlaminectomy syndrome, not elsewhere classified (principal); M54.16 Radiculopathy, lumbar region; Z98.1 Arthrodesis status; M51.36 Other intervertebral disc degeneration, lumbar region
CPT/HCPCS: 72100

== ENCOUNTER 2022-08-27 09:39 | Outpatient (CLI) | payer MEDICARE, SELFPAY ==
[2022-08-27 10:25] LABS: Hematocrit 41.1 % (37.0-47.0); Hemoglobin 13.8 g/dL (12.0-15.0); Mean Corpuscular HGB Conc 33.6 g/dl (32-36); Mean Corpuscular Hemoglobin 30.9 pg (26-34); Mean Corpuscular Volume 92.2 fl (80-100); Mean Platelet Volume 9.6 fl (7.4-10.4); Platelet Count Result 226 k/mm3 (150-375); Red Blood Count 4.46 M/mm3 (4.2-5.4); Red Cell Distribution Width 13.5 % (11.5-14.5); White Blood Count 5.6 K/mm3 (4.5-10.0)
[2022-08-27 10:36] LABS: Alanine Aminotransferase 22 U/L (6-35); Albumin Level 4.7 g/dL (3.5-5.1); Alkaline Phosphatase 54 U/L (38-126); Anion Gap 7 mmol/L (8-16); Aspartate Amino Transferase 31 U/L (14-36); Bilirubin,Total 0.6 mg/dL (0.2-1.3); Blood Urea Nitrogen 13 mg/dL (7-17); Calcium 9.1 mg/dL (8.4-10.2); Carbon Dioxide 30 mmol/L (22-30); Chloride 96 mmol/L (98-107); Cholesterol 180 mg/dL (0-200); Estimated Glomerular Filt Rate > 60; Glucose 89 mg/dL (65-110); HDL Direct 102 mg/dL; Potassium 3.9 mmol/L (3.4-5.0); Sodium 133 mmol/L (137-145); Triglycerides 38 mg/dL (<150)
[2022-08-27 10:48] LABS: LDL Cholesterol Direct 56 mg/dL
[2022-08-27 11:07] LABS: Thyroid Stimulating Hormone 0.897 uIU/mL (0.465-4.680)
[2022-08-31 13:35] LABS: Vitamin D 1,25 (OH)2 Total 55 pg/mL (18-72); Vitamin D2 1,25 (OH)2 <8 pg/mL; Vitamin D3 1,25 (OH)2 55 pg/mL
== END 2022-08-27 09:40 | disposition home or self-care (01) ==
PROVIDERS: PCP Internal Medicine; Visit Provider Internal Medicine
DX: Z00.00 Encounter for general adult medical examination without abnormal findings (principal); E55.9 Vitamin D deficiency, unspecified; F41.9 Anxiety disorder, unspecified; I10 Essential (primary) hypertension
CPT/HCPCS: 36415; 80053; 80061; 82652; 84443; 85027

== ENCOUNTER 2023-01-03 13:10 | Emergency (ER) | payer MEDICARE, SELFPAY ==
--- NOTE | ~2023-01-03 | XR_ITS ---
EXAMINATION: XR chest 2V Exam Date/Time: 01/03/2023 14:30 CDT HISTORY: palpitations, RACING HEART, HX HIGH BLOOD PRESSURE Comparison: 04/07/2021. RESULT: Lines, tubes, and devices: None. Lungs and pleura: Senescent changes. Right lower lung scar. Cardiomediastinal silhouette: Stable. Dilated central pulmonary arteries. Other: No acute osseous or upper abdominal finding. Old right rib fractures. IMPRESSION: No acute cardiopulmonary process. Reviewed, dictated and finalized at location K.
[2023-01-03 13:19] VITALS: BP 117/77; PULSE 105; RESP 18; TEMP 36.7; O2SAT 96
[2023-01-03 14:08] VITALS: PULSE 91
--- NOTE | 2023-01-03 14:13 | ECG_ITS ---
Measurements Intervals [place] Rate: 90 P: 53 DC: 153 QRS: 21 QRSD: 89 T: 48 QT: 346 QTc: 425 Interpretive Statements SINUS RHYTHM WITHIN NORMAL LIMITS COMPARED TO ECG 04/07/2021 08:02:45 NO SIGNIFICANT CHANGES Electronically Signed On 01-03-2023 16:09:47 CDT by Abimael Phillips M.D.
[2023-01-03 14:43] LABS: Basophils Percent Auto 0.6 % (0.2-1.2); Eosinophils Absolute Auto 0.1 K/mm3 (0-0.3); Eosinophils Percent Auto 1.5 % (0-4.4); Hematocrit 34.4 % (37.0-47.0); Hemoglobin 11.6 g/dL (12.0-15.0); Immature Granulocyte Absolute 0.03 K/mm3 (0.00-0.031); Immature Granulocyte Percent A 0.6 % (0-0.5); Lymphocytes Absolute Auto 0.64 K/mm3 (0.9-3.2); Lymphocytes Percent Auto 13.7 % (18.3-44.2); Mean Corpuscular HGB Conc 33.7 g/dl (32-36); Mean Corpuscular Hemoglobin 30.3 pg (26-34); Mean Corpuscular Volume 89.8 fl (80-100); Mean Platelet Volume 9.3 fl (7.4-10.4); Monocytes Absolute Auto 0.6 K/mm3 (0.1-0.6); Monocytes Percent Auto 12.2 % (2.6-8.5); Neutrophils Absolute Auto 3.3 K/mm3 (1.3-6.7); Neutrophils Percent Auto 71.4 % (45.5-73.1); Platelet Count Result 172 k/mm3 (150-375); Red Blood Count 3.83 M/mm3 (4.2-5.4); White Blood Count 4.7 K/mm3 (4.5-10.0)
[2023-01-03 14:53] LABS: Alanine Aminotransferase 39 U/L (6-35); Albumin Level 3.8 g/dL (3.5-5.1); Alkaline Phosphatase 54 U/L (38-126); Anion Gap 3 mmol/L (8-16); Aspartate Amino Transferase 45 U/L (14-36); Bilirubin,Total 0.4 mg/dL (0.2-1.3); Blood Urea Nitrogen 14 mg/dL (7-17); Calcium 8.4 mg/dL (8.4-10.2); Carbon Dioxide 32 mmol/L (22-30); Chloride 86 mmol/L (98-107); Estimated CRCL calculation 52 ml/min; Estimated Glomerular Filt Rate > 60; Glucose 114 mg/dL (65-110); Magnesium 2.1 mg/dL (1.6-2.3); Potassium 4.6 mmol/L (3.4-5.0); Sodium 121 mmol/L (137-145)
--- NOTE | 2023-01-03 15:53 | ED.ARRPALP ---
HPI - Arrhythmia/Palpitations General Chief Complaint: Arrhythmia/Palpitations Stated Complaint: my heart rate is high Time Seen by Provider: 01/03/23 14:06 History of Present Illness HPI narrative: Patient is a 72-year-old female who presents ER with an elevated heart rate. She reports that she felt like her heart was beating fast and it was 117 bpm at home. No chest pain or chest pressure. No dizziness. No difficulty breathing. No history of arrhythmia. Has no symptoms at this time. She had no urinary frequency urgency or dysuria. No additional concerns at this time. Related Data Home Medications Medication Instructions Recorded Confirmed estradiol 0.5 mg tablet 0.5 mg PO DAILY 06/16/19 11/17/22 fentanyl 25 mcg/hr transdermal 25 mcg topical USEASDIRECTD 06/16/19 11/17/22 patch oxycodone-acetaminophen 10 mg-325 1 tablet PO BID PRN Pain (Scale 06/16/19 11/17/22 mg tablet Score 7-10) polyethylene glycol 3350 17 gram 17 g PO DAILY 06/17/19 11/17/22 oral powder packet (Miralax) meloxicam 15 mg tablet 15 mg PO DAILY 07/20/21 11/17/22 halobetasol propionate 0.05 % 1 applic topical DAILY 11/17/22 11/17/22 topical cream Allergies Allergy/AdvReac Type Severity Reaction Status Date / Time adhesive tape Allergy Mild Rash Verified 01/03/23 14:08 Penicillins Allergy Unknown Unknown Verified 01/03/23 14:08 Review of Systems Review of Systems: All systems reviewed & are unremarkable except as noted in HPI and below Constitutional: Constitutional: Denies chills, Denies fatigue and Denies fever(s) ENT: Denies nasal congestion and Denies sore throat Cardiovascular: Cardiovascular: Denies chest pain, Reports rapid heart rate and Denies radiating jaw, neck or arm pain Respiratory: Respiratory: Denies cough, Denies dyspnea and Denies wheezing Gastrointestinal: Gastrointestinal: Denies diarrhea, Denies nausea and Denies vomiting PMF Past Medical History Medical History Anxiety Chronic obstructive pulmonary disease Chronic pain syndrome Chronic low back pain on long-term opioid therapy. Degenerative disc disease Depression Hypertension Reactive airway disease Treadmill stress test negative for angina pectoris (05/2007) Vitamin D deficiency Surgical History Surgical History History of colonoscopy Done for evaluation of bright red blood per rectum per Dr. Yan in 2007. Internal hemorrhoids were noted, felt to be the source of the bleeding. History of hysterectomy History of lumbar discectomy Family History Family History Father Malignant neoplasm of prostate Family history of heart disease in male family member before age 55 Mother Carcinoma of colon Other Family history of cardiovascular disease Social History Social History Social History: Resides in [place] with her . No alcohol, tobacco, or illicit substance abuse. She designates her , Christopher as her surrogate decision maker. Code status: Full code. Smoking status: Never smoker Second hand tobacco smoke exposure: No Alcohol intake: current Drinks per week: 2 Alcohol use details: not often at all Substance use: current Substance use type: marijuana Last use: 07/19/21 Lack of Transportation: No Lack of Food: Never True Current Housing: I Have Housing Concerned About Future Housing: No Difficulty Paying Gas/Electric Bills: No Difficulty Paying for Meds: No Currently Unemployed: No Education: High School Diploma/GED Difficulty w/ Childcare or Family Care: No Living arrangements: with family Gender identity (if verbalized by the patient): Female Sexual Orientation (if Verbalized by the Patient): Straight or Heterosexual Spiritual care concerns: No Exam Narrati
== END 2023-01-03 17:00 | disposition home or self-care (01) ==
PROVIDERS: Emergency Provider Emergency Medicine; PCP Family Medicine
DX: E87.1 Hypo-osmolality and hyponatremia (principal); J44.9 Chronic obstructive pulmonary disease, unspecified; I10 Essential (primary) hypertension; G89.4 Chronic pain syndrome; M54.50 Low back pain, unspecified; E55.9 Vitamin D deficiency, unspecified
CPT/HCPCS: 36415; 71046; 80053; 83735; 85025; 93005; 99283

== ENCOUNTER 2023-01-07 09:13 | Outpatient (CLI) | payer MEDICARE, SELFPAY ==
[2023-01-07 10:25] LABS: Anion Gap 3 mmol/L (8-16); Blood Urea Nitrogen 12 mg/dL (7-17); Calcium 8.2 mg/dL (8.4-10.2); Carbon Dioxide 29 mmol/L (22-30); Chloride 91 mmol/L (98-107); Estimated Glomerular Filt Rate > 60; Glucose 111 mg/dL (65-110); Potassium 4.5 mmol/L (3.4-5.0); Sodium 123 mmol/L (137-145)
== END 2023-01-07 09:14 | disposition home or self-care (01) ==
LOC: ANHLAB 09:14
PROVIDERS: PCP Family Medicine; Visit Provider Family Medicine
DX: E87.1 Hypo-osmolality and hyponatremia (principal)
CPT/HCPCS: 36415; 80048

== ENCOUNTER 2023-02-04 12:22 | Outpatient (CLI) | payer MEDICARE, SELFPAY ==
[2023-02-04 12:59] LABS: Hemoglobin 11.5 g/dL (12.0-15.0); Mean Corpuscular HGB Conc 31.9 g/dl (32-36); Mean Corpuscular Hemoglobin 29.9 pg (26-34); Mean Corpuscular Volume 93.5 fl (80-100); Mean Platelet Volume 8.8 fl (7.4-10.4); Platelet Count Result 201 k/mm3 (150-375); Red Blood Count 3.85 M/mm3 (4.2-5.4); Red Cell Distribution Width 14.4 % (11.5-14.5); White Blood Count 4.9 K/mm3 (4.5-10.0)
[2023-02-04 13:14] LABS: Alanine Aminotransferase 18 U/L (6-35); Albumin Level 4.1 g/dL (3.5-5.1); Alkaline Phosphatase 57 U/L (38-126); Anion Gap 8 mmol/L (8-16); Aspartate Amino Transferase 26 U/L (14-36); Bilirubin,Total 0.4 mg/dL (0.2-1.3); Blood Urea Nitrogen 12 mg/dL (7-17); Calcium 8.8 mg/dL (8.4-10.2); Carbon Dioxide 27 mmol/L (22-30); Chloride 95 mmol/L (98-107); Estimated Glomerular Filt Rate > 60; Glucose 67 mg/dL (65-110); Iron 75 ug/dL (37-170); Potassium 4.5 mmol/L (3.4-5.0); Sodium 130 mmol/L (137-145)
[2023-02-04 13:23] LABS: Percent Iron Saturation 28 % (20-50)
== END 2023-02-04 12:23 | disposition home or self-care (01) ==
LOC: ANHLAB 12:23
PROVIDERS: PCP Family Medicine; Visit Provider Family Medicine
DX: E87.1 Hypo-osmolality and hyponatremia (principal); D64.9 Anemia, unspecified; I10 Essential (primary) hypertension
CPT/HCPCS: 36415; 80053; 82607; 83540; 83550; 85027

== ENCOUNTER → 2023-03-23 12:49 | Outpatient (CLI) | payer MEDICARE, SELFPAY ==
--- NOTE | ~2023-03-23 | XR_ITS ---
EXAMINATION: XR lumbar spine min 4V DATE: 03/23/2023 14:32 INDICATION: Spinal tumor, low back pain TECHNIQUE: Anteroposterior and lateral in neutral, flexion and extension views of the lumbar spine, a nd cone-down lateral view of the lumbosacral junction were obtained. COMPARISON: 06/17/2022 FINDINGS: There are 7 mm of anterolisthesis of L3 on L4 which reduced to 5 mm in extension and increa ses to 9 mm with flexion. Changes of anterior interbody fusion are noted at L4-5 and L5-S1. There is severe loss of intervertebral disc space height at L3-4. The vertebral body heights are maintained. T here is no fracture. There is severe facet joint osteoarthritis of the mid and lower lumbar spine. IMPRESSION: 1. Grade 1 anterolisthesis of L3 on L4 with mobility in flexion and extension as detailed above. 2. Mild lumbar spondylosis with anterior interbody fusion at L4-5 and L5-S1. Reviewed, dictated and finalized at location L. IMPRESSION: 1. Grade 1 anterolisthesis of L3 on L4 with mobility in flexion and extension a s detailed above. 2. Mild lumbar spondylosis with anterior interbody fusion at L4-5 and L5-S1.
--- NOTE | ~2023-03-23 | MR_ITS ---
MRI of the lumbar spine Clinical History: Neoplasm of uncertain behavior Technique: Axial T2-weighted images, and sagittal T1-weighted, T2-weighted, and T2 fat-sat images wer e acquired. Following intravenous administration of 12 cc MultiHance gadolinium, T1-weighted fat-sat imaging was performed in the axial and sagittal planes. Findings: No acute fracture identified. There is 9 mm anterolisthesis of L3 over L4. There is interbo dy fusion across the L4-L5 and L5-S1 disc spaces. No suspicious bone marrow signal abnormality seen. At L1-L2, there is no disc bulge or herniation. There is mild facet hypertrophy. No central canal pj nosis or neural foraminal narrowing. At L2-L3, there is minimal disc bulge and mild facet arthropathy. No central canal stenosis. There is mild bilateral neural foraminal narrowing. L3-L4, there is disc bulge/uncovering with severe facet arthropathy, resulting in severe central edgardo l stenosis/thecal sac compression. There is severe left neural foraminal narrowing and mild to modera te right neural foraminal narrowing. At L4-L5, there is no disc bulge or herniation. There is no central canal stenosis or neural foramina l narrowing. At L5-S1, there is minimal disc bulge with moderate to advanced facet arthropathy. No central canal s tenosis. There is severe left neural foraminal narrowing, and moderate right neural foraminal narrowi ng. Paravertebral soft tissues are unremarkable. No abnormal postcontrast enhancement identified. Impression: 9 mm anterolisthesis of L3 over L4. Severe degenerative spondylosis at L3-L4, as detailed above. Interbody fusion at L4-L5 and L5-S1. Bilateral neural foraminal narrowing at L5-S1, as detailed above. Reviewed, dictated and finalized at location . Impression: 9 mm anterolisthesis of L3 over L4. Severe degenerative spondylosis at L3-L4, as detailed above. Interbody fusion at L4-L5 and L5-S1. Bilateral neural foraminal narrowing at L5-S1, as detailed above.
== END ==
PROVIDERS: PCP Family Medicine; Visit Provider Neurological Surgery
DX: D49.7 Neoplasm of unspecified behavior of endocrine glands and other parts of nervous system (principal); M47.896 Other spondylosis, lumbar region; Z98.1 Arthrodesis status
CPT/HCPCS: 72110; 72158; A9577

== ENCOUNTER 2023-05-12 11:58 | Outpatient (CLI) | payer MEDICARE, SELFPAY ==
[2023-05-12 12:49] LABS: Hematocrit 38.3 % (37.0-47.0); Hemoglobin 12.5 g/dL (12.0-15.0); Mean Corpuscular HGB Conc 32.6 g/dl (32-36); Mean Corpuscular Hemoglobin 29.8 pg (26-34); Mean Corpuscular Volume 91.4 fl (80-100); Mean Platelet Volume 9.5 fl (7.4-10.4); Platelet Count Result 216 k/mm3 (150-375); Red Blood Count 4.19 M/mm3 (4.2-5.4); Red Cell Distribution Width 13.3 % (11.5-14.5); White Blood Count 5.2 K/mm3 (4.5-10.0)
[2023-05-12 13:20] LABS: Alanine Aminotransferase 16 U/L (6-35); Albumin Level 4.2 g/dL (3.5-5.1); Alkaline Phosphatase 42 U/L (38-126); Anion Gap 4 mmol/L (8-16); Aspartate Amino Transferase 26 U/L (14-36); Bilirubin,Total 0.5 mg/dL (0.2-1.3); Blood Urea Nitrogen 18 mg/dL (7-17); Carbon Dioxide 30 mmol/L (22-30); Chloride 99 mmol/L (98-107); Estimated Glomerular Filt Rate > 60; Glucose 51 mg/dL (65-110); Potassium 4.2 mmol/L (3.4-5.0); Sodium 133 mmol/L (137-145)
== END 2023-05-12 11:59 | disposition home or self-care (01) ==
PROVIDERS: PCP Family Medicine; Visit Provider Family Medicine
DX: D64.9 Anemia, unspecified (principal); D72.829 Elevated white blood cell count, unspecified; E83.42 Hypomagnesemia; E87.1 Hypo-osmolality and hyponatremia; E87.6 Hypokalemia; G89.4 Chronic pain syndrome; I10 Essential (primary) hypertension; J44.9 Chronic obstructive pulmonary disease, unspecified; M85.80 Other specified disorders of bone density and structure, unspecified site
CPT/HCPCS: 36415; 80053; 85027

== ENCOUNTER 2023-06-29 15:05 | Outpatient (CLI) | payer MEDICARE, SELFPAY ==
--- NOTE | ~2023-06-29 | DEXA_ITS ---
Bone Density Report Name: LOUANN REED Age: 73 Sex: Female Ethnicity: White Date of : 1950 Indication: postmenopausal; screening for osteoporosis; height loss; prior fracture; hysterectomy; Referring Provider: DEREJE MONTGOMERY Study: Bone densitometry was performed. Exam Date: June 29, 2023 Accession number: [id number] Bone Density: Region BMD T-score Z-score Classification AP Spine(L1, L2, L3) 1.051 0.3 2.6 Normal Femoral Neck (Left) 0.698 -1.4 0.6 Osteopenia Total Hip (Left) 0.738 -1.7 0.0 Osteopenia Femoral Neck (Right) 0.712 -1.2 0.7 Osteopenia Total Hip (Right) 0.766 -1.4 0.2 Osteopenia Total Hip Mean 0.752 -1.6 0.1 Osteopenia World Health Organization criteria for BMD impression classify patients as: Normal (T-score at or above -1.0), Osteopenia (T-score between -1.0 and -2.5), or Osteoporosis (T-score at or below -2.5). 10-year Fracture Risk(1): Major Osteoporotic Fracture 15% Hip Fracture 2.3% Reported Risk Factors: [place] (), Neck BMD=0.698, BMI=22.1, previous fracture (1) FRAX(R) Version 3.08. Fracture probability calculated for an untreated patient. Fracture probability may be lower if the patient has received treatment. Clinical Information Provided by Patient: Has had a low trauma fracture Has used the following medications: HRT (i.e. estrogen/hormone therapy) Has the following medical conditions: Hysterectomy Patient maximum height was 67 Menopause Age: 44 Drinks caffeinated beverages Onset of menses at age 15 Number of children 1 Impression: The patient has low bone mass, based on the Left Total Hip T-score. The patient has an estimated ten-year risk of hip fracture of 2.3% and an estimated ten-year risk of major fracture of 15%, based on the WHO FRAX algorithm. The patient has risk factors, including: previous fracture. Discussion: BONE DENSITY IS LOW AT ONE OR MORE SKELETAL SITES. This patient's lowest T-score is low at one or more skeletal sites. It meets the World Health Organization's (WHO) criteria for ?low bone mass? (T-score between -1.0 and -2.5). The patient's 10-year risk of fracture as calculated by FRAX is less than the threshold where pharmacological therapy is recommended by the National Osteoporosis Foundation (NOF). However, all treatment decisions require clinical judgment and consideration of individual patient factors, including patient preferences, comorbidities, previous drug use, risk factors not captured in the FRAX model (e.g., frailty, falls, vitamin D deficiency, increased bone turnover, interval significant decline in bone density) and possible under or overestimation of fracture risk by FRAX. The patient should follow a healthful lifestyle (good nutrition with adequate calcium and vitamin D, and appropriate weight-b
== END 2023-06-29 15:06 | disposition home or self-care (01) ==
LOC: ANHIMG 15:07
PROVIDERS: PCP Family Medicine; Visit Provider Family Medicine
DX: Z78.0 Asymptomatic menopausal state (principal); M85.89 Other specified disorders of bone density and structure, multiple sites
CPT/HCPCS: 77080

== ENCOUNTER 2024-03-13 10:08 | Outpatient (CLI) | payer MEDICARE, SELFPAY ==
[2024-03-13 10:26] LABS: Hematocrit 38.6 % (37.0-47.0); Hemoglobin 12.9 g/dL (12.0-15.0); Mean Corpuscular HGB Conc 33.4 g/dl (32-36); Mean Corpuscular Hemoglobin 30.3 pg (26-34); Mean Corpuscular Volume 90.6 fl (80-100); Mean Platelet Volume 9.3 fl (7.4-10.4); Platelet Count Result 235 k/mm3 (150-375); Red Blood Count 4.26 M/mm3 (4.2-5.4); Red Cell Distribution Width 13.7 % (11.5-14.5); White Blood Count 6.4 K/mm3 (4.5-10.0)
[2024-03-13 10:48] LABS: Alanine Aminotransferase 16 U/L (6-35); Albumin Level 4.3 g/dL (3.5-5.1); Alkaline Phosphatase 58 U/L (38-126); Anion Gap 8 mmol/L (4-12); Aspartate Amino Transferase 30 U/L (14-36); Bilirubin,Total 0.6 mg/dL (0.2-1.3); Blood Urea Nitrogen 15 mg/dL (7-17); Carbon Dioxide 29 mmol/L (22-30); Chloride 95 mmol/L (98-107); Cholesterol 159 mg/dL (0-200); Estimated Glomerular Filt Rate > 60; Glucose 88 mg/dL (65-110); HDL Direct 92 mg/dL; Potassium 3.8 mmol/L (3.4-5.0); Sodium 132 mmol/L (137-145); Triglycerides 40 mg/dL (<150)
[2024-03-13 10:59] LABS: LDL Cholesterol Direct 53 mg/dL
[2024-03-13 11:43] LABS: Vitamin D 25 Hydroxy 46.5 ng/mL
== END 2024-03-13 10:09 | disposition home or self-care (01) ==
PROVIDERS: PCP Family Medicine; Visit Provider Family Medicine
DX: D64.9 Anemia, unspecified (principal); I10 Essential (primary) hypertension; E87.6 Hypokalemia; E16.2 Hypoglycemia, unspecified; E87.1 Hypo-osmolality and hyponatremia; F32.9 Major depressive disorder, single episode, unspecified; F41.9 Anxiety disorder, unspecified; J44.9 Chronic obstructive pulmonary disease, unspecified; E55.9 Vitamin D deficiency, unspecified
CPT/HCPCS: 36415; 80053; 80061; 82306; 82607; 85027

== ENCOUNTER 2025-02-28 12:13 | Outpatient (CLI) | payer MEDICARE, SELFPAY ==
--- OUTSIDE RECORDS SUMMARY | 2025-02-28 12:16 | XMS_ITS | Clinical Summary ---
Author Organization [facility] Address [address] [place] [phone] Phone Care Team Providers Care Circus Roustabout Name Role Phone Unavailable Primary Care Provider Unavailabl e Social History Tobacco Use Types Packs/Day Years Used Date Smoking Tobacco: Never Assessed Comments Unknown Sex and Gender Information Value Date Recorded Sex Assigned at Not on file Legal Sex Female 10:13 PM CDT Gender Identity Not on file Sexual Orientation Not on file Plan of Treatment Health Maintenance Due Date Last Done Comments DTAP/TDAP/TD VACCINES (1 - Tdap) 1969 BREAST CANCER SCREENING 1990 COLORECTAL SCREENING 1995 Colorectal Cancer Screening 1995 FIT-DNA Q 3 years 1995 FIT/FOBT Q 1 year 1995 Flex Sig/CT Colonography Q 5 years 1995 PNEUMOCOCCAL VACCINE 50+ YEARS (1 of 1 - PCV) 04/05/20 00 ZOSTER VACCINE (1 of 2) 2000 OSTEOPOROSIS SCREENING 2015 INFLUENZA VACCINE (#1) 2025 RSV VACCINE (60+ or ) (1 - 1-dose 75+ series) 2025 Insurance BS BLUE ACCESS/TRUE BLUE PPO
--- OUTSIDE RECORDS SUMMARY | 2025-02-28 12:16 | XMS_ITS | Encounter Summary ---
Author Organization [facility] Address [address] [place] [address] Care Team Providers Care Production Assembly Supervisor Name Role Phone Miles Vincent DO Primary Care Provider [phone] Encounter Details Date Type Department Care Team (Late st Contact Info) Description 01/04/2019 Lab Requisition [facility] [address] [facility] [place] [address] [place] [address] Social History Tobacco Use Types Packs/Day Years Used Date Smoking Tobacco: Never Assessed Comments Unknown Sex and Gender Information Value Date Recorded Sex Assigned at Not on file 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 Gender Identity Not on file Sexual Orientation Not on file documented as of this encounter Plan of Treatment Not on file documented as of this encounter Procedures Procedure Name Priority Date/Time Associated Diagnosis Comments DERMATOPATHOLOGY Routine 01/03/2019 12:0 0 AM CDT documented in this encounter Results * DERMATOPATHOLOGY (01/03/2019 12:00 AM CDT) Case Report Dermatopathology Report Case: [id number] Authorizing Provider: Wilbert Mahoney MD Collected: 01/03/2019 12:00 AM Pathologist: Yanelis Baker MD Received: 01/04/2019 01:21 PM Specimen: Skin, right superior medial buttock 9 3:52 PM CDT DERMATOPATHOLOGY LABORATORY Final Diagnosis Specimen A. 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 3:52 PM CDT DERMATOPATHOLOGY LABORATORY Gross Description Specimen A: Received is one formalin filled container labeled with the patient's name and designated right superior medial buttock. The specimen consists of a shave biopsy measuring [id number]. Jar 0. 3:52 PM CDT DERMATOPATHOLOGY LABORATORY Microscopic Description Specimen A. SKIN, right superior medial buttock: There is focal parakeratosis and spongiosis. The dermis shows a superficial and deep, perivascular and interstitial infiltrate of lymphocytes and eosinophils. Many of the eosinophils are present in the papillary dermis and occasional eosinophils are noted within the epidermis. There is no evidence of viral cytopathic change in the sections examined. Grocott's methenamine silver (GMS) stain fails to highlight fungal elements in the available sections. COMMENT: The histological differential diagnosis includes contact dermatitis, the urticarial phase of bullous pemphigoid, and a hypersensitivity reaction. If there is clinical concern for a diagnosis of bullous pemphigoid consideration should be given to submitting tissue for direct immunofluorescence. 3:52 PM T DERMATOPATHOLOGY LABORATORY Disclaimer An external and internal positive and negative controls are appropriate for the histochemical, immunohistochemical and immunofluorescence stain(s) in this case (if any), except where stated explicitly. The performance characteristics of the stain(s) cited in this report were developed and its performance characteristic determined by the Dermatopathology Laboratory at [facility], directed by Dr. Ligia Baker. These tests need not be, and therefore are not, approved by the [place] Food and Drug Administration. The tests are used for clinical purposes. Billing Codes Specimen Charges Stain Charges 50192 1 67519 1 3:52 PM CDT DERMATOPATHOLOGY LABORATORY Embedded Images 3:52 PM CDT DERMATOPATHOLOGY LABORATORY Pathology/Cytolog y TISSUE SPECIMEN FROM SKIN / Unknown 01/03/2019 01/04/2019 1:21 PM CDT Wilbert Mahoney MD LAB - PATHOLOGY/CYTOLOGY ORD ERABLES Final Result DERMATOPATHOLOGY LABORATORY [facility] - Department of Dermatology [facility] [facility], 5th Floor Lab [address] [phone] documented in this encounter Visit Diagnoses Not on filedocumented in this encounter Care Teams Production Assembly Supervisor Relationship Specialty Start Date End Date Miles Vincent DO [address] [place] [address] PCP - General 04/15/21 documented as of this encounter
--- OUTSIDE RECORDS SUMMARY | 2025-02-28 12:16 | XMS_ITS | Clinical Summary ---
Author Organization [facility] Address [address] [place] [address] Care Team Providers Care Hub Borer Name Role Phone Miles Vincent DO Primary Care Provider [phone] Source Comments [facility],non-owned Affiliates and Associated Physician Practices is amultiple site organization consisting of ambulatory clinics and [place] sitesin [place] and [place]. This disclosure is being madepursuant to the Care Everywhere program and may not contain all information available regarding this patient. 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 Gender Identity Not on file Sexual Orientation Not on file Plan of Treatment Health Maintenance Due Date Last Done Comments BONE DENSITY TESTING 1950 COLOGUARD (AGES 45-75) - COL ON CA SCREENING 1950 COLON MONITORING 1950 COLONOSCOPY - COLON CA SCREENING 1950 CT COLONOGRAPHY - COLON CA SCREENING 1950 Colorectal Cancer Screening 1950 FIT - COLON CA SCREENING 1950 FLEX SIG - COLON CA SCREENING 1950 LIPID TESTING 1950 MAMMOGRAM 1950 HEPATITIS C SCREENING 03/31/1968 DTAP/TDAP/TD VACCINES (1 - Tdap) 1969 PNEUMOCOCCAL VACCINE 50+ (1 of 1 - PCV) 2000 ZOSTER VACCINE (1 of 2) 2000 COVID-19 VACCINE (1 - 2023-2 5 season) 2024 DEPRESSION SCREENING 07/18/2024 INFLUENZA VACCINE (#1) 2025 Respiratory Syncytial Virus (RSV) Vaccine Pt: or over 60 yrs (1 - 1-dose 75+ series) 2025 HEPATITIS B VACCINE Aged Out No longe r eligible based on patient's age to complete this topic HIB VACCINE Aged Out No longer eligi ble based on patient's age to complete this topic HPV VACCINE Aged Out No longer eligi ble based on patient's age to complete this topic MENINGOCOCCAL (Group B) VACC INE SHARED DECISION-MAKING Aged Out No longer eligibl e based on patient's age to complete this topic MENINGOCOCCAL GROUPS A/C/Y/W VACCINE Aged Out No longer eligible b ased on patient's age to complete this topic Insurance [employer] Care Teams Hub Borer Relationship Specialty Start Date End Date Miles Vincent DO [address] [place] [id number] PCP - General 04/15/21
[2025-02-28 12:57] LABS: Hematocrit 37.2 % (37.0-47.0); Hemoglobin 12.1 g/dL (12.0-15.0); Immature Granulocyte Percent A 0.4 % (0-0.5); Lymphocytes Absolute Auto 1.24 K/mm3 (0.9-3.2); Mean Corpuscular HGB Conc 32.5 g/dl (32-36); Mean Corpuscular Hemoglobin 29.4 pg (26-34); Mean Corpuscular Volume 90.3 fl (80-100); Nucleated Red Blood Cells Absolute Auto 0.000 K/mm3 (0.0-0.012); Nucleated Red Blood Cells Perc 0.0 % (0.0-0.2); Platelet Count Result 227 k/mm3 (150-375); Red Blood Count 4.12 M/mm3 (4.2-5.4); White Blood Count 5.6 K/mm3 (4.5-10.0)
[2025-02-28 14:17] LABS: Alanine Aminotransferase 15 U/L (6-35); Albumin Level 4.0 g/dL (3.5-5.1); Alkaline Phosphatase 54 U/L (38-126); Anion Gap 6 mmol/L (4-12); Aspartate Amino Transferase 38 U/L (14-36); Bilirubin,Total 0.4 mg/dL (0.2-1.3); Blood Urea Nitrogen 11 mg/dL (7-17); Calcium 9.3 mg/dL (8.4-10.2); Carbon Dioxide 28 mmol/L (22-30); Chloride 96 mmol/L (98-107); Estimated Glomerular Filt Rate > 60; Glucose 75 mg/dL (65-110); Potassium 4.3 mmol/L (3.4-5.0); Sodium 130 mmol/L (137-145); Total Protein 6.7 g/dL (6.3-8.2)
[2025-02-28 15:14] LABS: Vitamin B12 435.0 pg/mL (239-931)
== END 2025-02-28 12:14 | disposition home or self-care (01) ==
LOC: ANHLAB 12:14
PROVIDERS: PCP Family Medicine; Visit Provider Family Medicine
DX: F41.9 Anxiety disorder, unspecified (principal); I10 Essential (primary) hypertension; E55.9 Vitamin D deficiency, unspecified; F32.9 Major depressive disorder, single episode, unspecified
CPT/HCPCS: 36415; 80053; 82306; 82607; 85025